=== PATIENT | male | born 1955 | race Caucasian/White ===

== ENCOUNTER 2016-07-08 15:19 | Outpatient (RCR) | payer BC ==
--- OUTSIDE RECORDS SUMMARY | 2016-04-21 15:19 | XMS REPORT | Continuity of Care Document ---
Author Author [facility] Organization [facility] Address Unknown Phone Unavailable Care Team Providers Care Orchid Hand Name Role Phone Leland Hernández PCP [phone] Source Comments Some departments are not documenting in the electronic medical record. If you do not see the information that you expected, contact Release of Information in the Health Information Management department at [phone] for further assistance in locating additional records.[facility] Active Allergies and Adverse Reactions No Known Allergies Current Medications Prescription Sig. Disp. Refills Start End Date Status Date benazepril (LOTENSIN) 20 Take 20 mg by mouth Active mg tablet daily. Olopatadine 0.6 % spry Apply 2 Sprays to each Active nostril as directed twice daily as needed. levothyroxine (SYNTHROID) Take 150 mcg by mouth Active 150 mcg tablet daily. MULTIVITAMINS WITH Take 1 Tab by mouth Active FLUORIDE (MULTI-VITAMIN daily. PO) Lysine 500 mg tab Take 1 Tab by mouth twice Active daily. tamsulosin (FLOMAX) 0.4 Take 1 Cap by mouth daily 90 Cap 3 10/17/19 Active mg capsule after breakfast. 16 baclofen (LIORESAL) 10 mg Take 0.5 Tabs by mouth 270 Tab 3 10/17/19 Active tablet three times daily. 16 acetaminophen (TYLENOL) Take 2 Tabs by mouth 30 Tab 1 10/17/19 Active 325 mg tablet every 4 hours as needed 16 for Pain. oxyCODONE (ROXICODONE) 5 Take 1 Tab by mouth every 10/17/19 Active mg tablet 3 hours as needed for 16 Pain Earliest Fill Date: 10/17/15 levETIRAcetam (KEPPRA) Take 1 Tab by mouth twice 10/17/19 Active 500 mg tablet daily. 16 cetirizine (ZYRTEC) 10 mg Take 1 Tab by mouth 90 Tab 3 10/17/19 Active tablet daily. 16 famotidine (PEPCID) 20 mg Take 1 Tab by mouth twice 180 Tab 3 Active tablet daily. 16 docusate (COLACE) 100 mg Take 1 Cap by mouth twice 180 Cap 3 10/17/19 Active capsule daily. 16 milk of magnesia (CONC) Take 10 mL by mouth 10/17/19 Active 2,400 mg/10 mL oral daily. 16 suspension polyethylene glycol 3350 Take 17 g by mouth twice 238 g 3 10/17/19 Active (GLYCOLAX; MIRALAX) 17 daily. 16 gram/dose powder senna/docusate Take 1 Tab by mouth twice 10/17/19 Active (SENOKOT-S) 8.6/50 mg daily. 16 tablet fludrocortisone Take 1 Tab by mouth 10/17/19 Active (FLORINEF) 0.1 mg tablet daily. Maintain NA > 130 16 polymyxin/bacitracin/erin/ As directed 10/17/19 Active HC (CORTISPORIN) 1 % 16 topical ointment sodium chloride(#) inj Take 8.5 mL by mouth 10/17/19 Active for po 4 mEq/mL every 6 hours. 16 apixaban (ELIQUIS) 5 mg Take 5 mg by mouth twice Active tab tablet daily. SULFAMETHOXAZOLE/TRIMETHO Take 1 Tab by mouth twice Active PRIM (BACTRIM PO) daily. Active Problems Problem Noted Date GBM (glioblastoma multiforme) (HCC) 12/26/2015 Glioblastoma (HCC) 12/26/2015 Intracranial mass 10/03/2015 Most Recent Encounters Date Type Specialty Providers Description 03/25/2016 Orders Only Neurosurgery Brionna Deras RN Glioblastoma ( HCC) (Primary Dx) 02/29/2016 Orders Only Neurosurgery Monty Sorto MD GBM ( glioblastoma multiforme) (HCC) (Primary Dx) 02/29/2016 Telephone Monty Drake MD Appointment 02/26/2016 Orders Only Brionna De Santiago RN Glioblastoma ( HCC) 02/20/2016 Office Visit Monty Drake MD Glioblastoma (HCC) (Primary Dx) 02/20/2016 Office Visit Mansoor Holliday MD 02/11/2016 Telephone Monty Drake MD Appointment Social History Tobacco Use Types Packs/Day Years Used Date Current Every Day Smoker Cigarettes 0.5 Smokeless Tobacco: Never Used Alcohol Use Drinks/Week oz/Week Comments Yes 0 Standard 0.0 drinks or equivalent Last Filed Vital Signs Vital Sign Reading Time Taken Blood Pressure 108/72 02/20/2016 11:57 AM CDT Pulse 92 02/20/2016 11:57 AM CDT Temperature 36.9 C (98.4 F) 02/20/2016 11:57 AM CDT Respiratory Rate - - Height 1.829 m (6') 10/08/2015 7:34 PM CDT Weight 97.8 kg (215 lb 9.8 oz) 10/12/2015 6:00 AM CDT Body Mass Index 29.24 10/12/2015 6:00 AM CDT Oxygen Saturation 97% 10/17/2015 5:20 AM CDT Plan of Care Date Type Specialty Providers Description 04/23/2016 Appointment [place] [address] [place] [address] [phone] (Fax) 04/23/2016 Appointment Neurosurgery Mansoor Negron MD [address] [facility] [address] [place] [address] [phone] (Fax) Health Maintenance Due Date Last Done Comments Hepatitis C Screening 1955 Physical (Comprehensive) 1960 Exam Pertussis Vaccine 1964 Tetanus Vaccine 1970 Colorectal Cancer 2003 Screening Shingles Vaccine 2013 Influenza Vaccine 03/20/2016 Results from Last 3 Months MRI HEAD WO/W CONTRAST (02/15/2016)
[2016-04-21 15:28] LABS: BASOPHILS % (AUTO) 0 % (0-10); EOSINOPHILS # (AUTO) 0.5 10^3/uL (0.0-0.3); EOSINOPHILS % (AUTO) 6 % (0-10); LYMPHOCYTES # (AUTO) 1.5 X 10^3 (1.0-4.0); LYMPHOCYTES % (AUTO) 18 % (12-44); MEAN CORPUSCULAR HEMOGLOBIN 29 PG (25-34); MEAN CORPUSCULAR HGB CONC 33 G/DL (32-36); MEAN CORPUSCULAR VOLUME 86 FL (80-99); MEAN PLATELET VOLUME 9.4 FL (7.4-10.4); MONOCYTES # (AUTO) 1.1 X 10^3 (0.0-1.0); MONOCYTES % (AUTO) 14 % (0-12); NEUTROPHILS # (AUTO) 5.4 X 10^3 (1.8-7.8); NEUTROPHILS % (AUTO) 63 % (42-75); PLATELET COUNT 217 10^3/uL (130-400); RED BLOOD COUNT 4.09 10^6/uL (4.35-5.85); RED CELL DISTRIBUTION WIDTH 15.1 % (10.0-14.5); WHITE BLOOD COUNT 8.5 10^3/uL (4.3-11.0)
[2016-04-21 16:10] LABS: ALANINE AMINOTRANSFERASE 8 U/L (0-55); ALBUMIN 3.5 G/DL (3.2-4.5); ANION GAP 10 MMOL/L (5-14); ASPARTATE AMINO TRANSFERASE 13 U/L (5-34); BILIRUBIN,TOTAL 0.2 MG/DL (0.1-1.0); BLOOD UREA NITROGEN 20 MG/DL (7-18); BUN/CREATININE RATIO 18; CALCIUM 9.2 MG/DL (8.5-10.1); CARBON DIOXIDE 19 MMOL/L (21-32); CHLORIDE 107 MMOL/L (98-107); CREATININE SERUM 1.14 MG/DL (0.60-1.30); GFR ESTIMATED > 60; GLUCOSE 126 MG/DL (70-105); POTASSIUM 3.9 MMOL/L (3.6-5.0); SODIUM 136 MMOL/L (135-145); TOTAL PROTEIN 6.2 G/DL (6.4-8.2)
[2016-05-15 15:13] LABS: BASOPHILS % (AUTO) 0 % (0-10); EOSINOPHILS # (AUTO) 0.3 10^3/uL (0.0-0.3); EOSINOPHILS % (AUTO) 3 % (0-10); LYMPHOCYTES # (AUTO) 1.1 X 10^3 (1.0-4.0); LYMPHOCYTES % (AUTO) 12 % (12-44); MEAN CORPUSCULAR HEMOGLOBIN 28 PG (25-34); MEAN CORPUSCULAR HGB CONC 33 G/DL (32-36); MEAN CORPUSCULAR VOLUME 85 FL (80-99); MEAN PLATELET VOLUME 9.3 FL (7.4-10.4); MONOCYTES # (AUTO) 1.1 X 10^3 (0.0-1.0); MONOCYTES % (AUTO) 12 % (0-12); NEUTROPHILS # (AUTO) 6.8 X 10^3 (1.8-7.8); NEUTROPHILS % (AUTO) 73 % (42-75); PLATELET COUNT 286 10^3/uL (130-400); RED CELL DISTRIBUTION WIDTH 15.7 % (10.0-14.5); WHITE BLOOD COUNT 9.3 10^3/uL (4.3-11.0)
[2016-05-15 15:43] LABS: ALANINE AMINOTRANSFERASE 18 U/L (0-55); ALBUMIN 3.5 G/DL (3.2-4.5); ANION GAP 4 MMOL/L (5-14); ASPARTATE AMINO TRANSFERASE 14 U/L (5-34); BILIRUBIN,TOTAL 0.4 MG/DL (0.1-1.0); BLOOD UREA NITROGEN 16 MG/DL (7-18); BUN/CREATININE RATIO 15; CALCIUM 8.7 MG/DL (8.5-10.1); CARBON DIOXIDE 26 MMOL/L (21-32); CHLORIDE 104 MMOL/L (98-107); CREATININE SERUM 1.05 MG/DL (0.60-1.30); GFR ESTIMATED > 60; GLUCOSE 165 MG/DL (70-105); POTASSIUM 3.8 MMOL/L (3.6-5.0); SODIUM 134 MMOL/L (135-145); TOTAL PROTEIN 6.2 G/DL (6.4-8.2)
[2016-05-22 14:41] LABS: BASOPHILS % (AUTO) 0 % (0-10); EOSINOPHILS # (AUTO) 0.4 10^3/uL (0.0-0.3); EOSINOPHILS % (AUTO) 8 % (0-10); LYMPHOCYTES # (AUTO) 1.3 X 10^3 (1.0-4.0); LYMPHOCYTES % (AUTO) 23 % (12-44); MEAN CORPUSCULAR HEMOGLOBIN 29 PG (25-34); MEAN CORPUSCULAR HGB CONC 33 G/DL (32-36); MEAN CORPUSCULAR VOLUME 87 FL (80-99); MEAN PLATELET VOLUME 9.2 FL (7.4-10.4); MONOCYTES # (AUTO) 0.6 X 10^3 (0.0-1.0); MONOCYTES % (AUTO) 12 % (0-12); NEUTROPHILS # (AUTO) 3.2 X 10^3 (1.8-7.8); NEUTROPHILS % (AUTO) 57 % (42-75); PLATELET COUNT 328 10^3/uL (130-400); RED BLOOD COUNT 4.05 10^6/uL (4.35-5.85); RED CELL DISTRIBUTION WIDTH 15.8 % (10.0-14.5); WHITE BLOOD COUNT 5.6 10^3/uL (4.3-11.0)
[2016-05-22 15:07] LABS: ALANINE AMINOTRANSFERASE 17 U/L (0-55); ALBUMIN 3.6 G/DL (3.2-4.5); ANION GAP 8 MMOL/L (5-14); ASPARTATE AMINO TRANSFERASE 20 U/L (5-34); BILIRUBIN,TOTAL 0.2 MG/DL (0.1-1.0); BLOOD UREA NITROGEN 11 MG/DL (7-18); BUN/CREATININE RATIO 12; CALCIUM 9.1 MG/DL (8.5-10.1); CARBON DIOXIDE 26 MMOL/L (21-32); CHLORIDE 104 MMOL/L (98-107); CREATININE SERUM 0.92 MG/DL (0.60-1.30); GFR ESTIMATED > 60; GLUCOSE 107 MG/DL (70-105); SODIUM 138 MMOL/L (135-145); TOTAL PROTEIN 6.3 G/DL (6.4-8.2)
[2016-06-23 15:18] LABS: BASOPHILS % (AUTO) 0 % (0-10); EOSINOPHILS # (AUTO) 0.2 10^3/uL (0.0-0.3); EOSINOPHILS % (AUTO) 5 % (0-10); LYMPHOCYTES # (AUTO) 1.1 X 10^3 (1.0-4.0); LYMPHOCYTES % (AUTO) 23 % (12-44); MEAN CORPUSCULAR HGB CONC 33 G/DL (32-36); MEAN CORPUSCULAR VOLUME 90 FL (80-99); MEAN PLATELET VOLUME 9.3 FL (7.4-10.4); MONOCYTES # (AUTO) 0.5 X 10^3 (0.0-1.0); MONOCYTES % (AUTO) 10 % (0-12); NEUTROPHILS % (AUTO) 62 % (42-75); PLATELET COUNT 215 10^3/uL (130-400); RED BLOOD COUNT 4.21 10^6/uL (4.35-5.85); RED CELL DISTRIBUTION WIDTH 16.1 % (10.0-14.5); WHITE BLOOD COUNT 4.9 10^3/uL (4.3-11.0)
[2016-06-23 15:26] LABS: MEAN CORPUSCULAR HEMOGLOBIN 29 PG (25-34)
[2016-06-23 15:49] LABS: ALANINE AMINOTRANSFERASE 11 U/L (0-55); ALBUMIN 3.8 G/DL (3.2-4.5); ANION GAP 7 MMOL/L (5-14); ASPARTATE AMINO TRANSFERASE 17 U/L (5-34); BILIRUBIN,TOTAL 0.3 MG/DL (0.1-1.0); BLOOD UREA NITROGEN 13 MG/DL (7-18); BUN/CREATININE RATIO 15; CALCIUM 9.2 MG/DL (8.5-10.1); CARBON DIOXIDE 28 MMOL/L (21-32); CHLORIDE 106 MMOL/L (98-107); CREATININE SERUM 0.87 MG/DL (0.60-1.30); GFR ESTIMATED > 60; GLUCOSE 113 MG/DL (70-105); POTASSIUM 4.1 MMOL/L (3.6-5.0); SODIUM 141 MMOL/L (135-145); TOTAL PROTEIN 6.2 G/DL (6.4-8.2)
[2016-06-30 16:06] LABS: BASOPHILS % (AUTO) 0 % (0-10); EOSINOPHILS # (AUTO) 0.2 10^3/uL (0.0-0.3); EOSINOPHILS % (AUTO) 4 % (0-10); LYMPHOCYTES % (AUTO) 18 % (12-44); MEAN CORPUSCULAR HEMOGLOBIN 30 PG (25-34); MEAN CORPUSCULAR HGB CONC 33 G/DL (32-36); MEAN CORPUSCULAR VOLUME 91 FL (80-99); MEAN PLATELET VOLUME 9.6 FL (7.4-10.4); MONOCYTES # (AUTO) 0.5 X 10^3 (0.0-1.0); MONOCYTES % (AUTO) 8 % (0-12); NEUTROPHILS # (AUTO) 3.7 X 10^3 (1.8-7.8); NEUTROPHILS % (AUTO) 69 % (42-75); PLATELET COUNT 198 10^3/uL (130-400); RED BLOOD COUNT 4.19 10^6/uL (4.35-5.85); RED CELL DISTRIBUTION WIDTH 15.4 % (10.0-14.5); WHITE BLOOD COUNT 5.4 10^3/uL (4.3-11.0)
[2016-06-30 16:38] LABS: ANION GAP 8 MMOL/L (5-14); BLOOD UREA NITROGEN 13 MG/DL (7-18); BUN/CREATININE RATIO 14; CALCIUM 9.2 MG/DL (8.5-10.1); CARBON DIOXIDE 27 MMOL/L (21-32); CHLORIDE 105 MMOL/L (98-107); CREATININE SERUM 0.95 MG/DL (0.60-1.30); GFR ESTIMATED > 60; GLUCOSE 104 MG/DL (70-105); SODIUM 140 MMOL/L (135-145)
[~2016-07-08 15:19] MED LIST: ACET-77 PO; ALFU10TA11 PO; ALPR0.5T PO; ALPR0.5T7 PO; AMPI500C9 PO; APIX5TAB PO; BACL10TA PO; BENA20TA2 PO; BETH25TA PO; BETH50TA PO; BNZ20T PO; CEFD300C3 PO; CEFU250T PO; CIPR500T4 PO; DEXA1TAB PO; DEXA4TAB PO; DIPH25CA79 PO; DOCU-143 PO; FAMO20TA3 PO; FAMO20TA5 PO; FLDR.1T PO; FLU TRIvalent (5 YOA+) 2016-17 (CANCER CTR) 0.5 ML IM ONE; HYDR453. TOP; IBUP-1773 PO; IBUP-2055 PO; INSU100I14 SQ; INSU100I29 SQ; INSU100V16 SC; INSU100V5 SQ; LEVE10006 PO; LEVE500T6 PO; LEVE500T99 PO; LEVO100T7 PO; LEVO150T PO; LEVO25TA45; LEVO50TA6 PO; LEVO750T9 PO; LIDO30JE10 TOP; LIDO5JEL10 TOP; LORA10TA7 PO; LRT10T; LYSI500T3 PO; MULT-35 PO; MULT-608; NCT7P TD; NITR-65 PO; NYST15CR TP; ONDA8TAB13 PO; ONDA8TAB9 PO; OXYC5TAB71 PO; Oxycodone Hcl PO; POLY17PO23 PO; SENN-20 PO; SULF1TAB35 PO; TEMO100C13 PO; TEMO20CA14 PO; TEMO5CAP PO; VITA1TAB
[2016-07-08 16:14] LABS: BASOPHILS % (AUTO) 0 % (0-10); EOSINOPHILS # (AUTO) 0.2 10^3/uL (0.0-0.3); EOSINOPHILS % (AUTO) 3 % (0-10); LYMPHOCYTES % (AUTO) 18 % (12-44); MEAN CORPUSCULAR HEMOGLOBIN 30 PG (25-34); MEAN CORPUSCULAR HGB CONC 34 G/DL (32-36); MEAN CORPUSCULAR VOLUME 91 FL (80-99); MEAN PLATELET VOLUME 9.4 FL (7.4-10.4); MONOCYTES # (AUTO) 0.5 X 10^3 (0.0-1.0); MONOCYTES % (AUTO) 10 % (0-12); NEUTROPHILS # (AUTO) 3.6 X 10^3 (1.8-7.8); NEUTROPHILS % (AUTO) 68 % (42-75); PLATELET COUNT 229 10^3/uL (130-400); RED BLOOD COUNT 4.45 10^6/uL (4.35-5.85); RED CELL DISTRIBUTION WIDTH 14.6 % (10.0-14.5); WHITE BLOOD COUNT 5.2 10^3/uL (4.3-11.0)
[2016-07-08 16:55] LABS: ANION GAP 9 MMOL/L (5-14); BLOOD UREA NITROGEN 13 MG/DL (7-18); BUN/CREATININE RATIO 14; CALCIUM 9.2 MG/DL (8.5-10.1); CARBON DIOXIDE 27 MMOL/L (21-32); CHLORIDE 105 MMOL/L (98-107); GFR ESTIMATED > 60; GLUCOSE 115 MG/DL (70-105); POTASSIUM 3.3 MMOL/L (3.6-5.0); SODIUM 141 MMOL/L (135-145)
[2016-07-15] MEDS ORDERED: TRAZ-28 PO (09:08)
[2016-07-15] MEDS ORDERED: LEVO150T6 PO (09:08)
[2016-07-15] MEDS ORDERED: ONDA8TAB13 PO (09:08)
[2016-07-15] MEDS ORDERED: TEMO100C13 PO (09:08)
[2016-07-15] MEDS ORDERED: ALPR0.5T7 PO (09:08)
[2016-07-15] MEDS ORDERED: NITR100C PO (09:08)
[2016-07-15] MEDS ORDERED: HYDR453. TP (09:19)
[2016-07-15] MEDS ORDERED: LIDO30JE10 TP (09:19)
[2016-07-15] MEDS ORDERED: DICL100G31 TP (09:19)
[2016-07-15] MEDS ORDERED: LORA10TA7 PO (09:22)
== END 2016-07-20 | disposition home or self-care (01) ==
LOC: ONC 15:19
PROVIDERS: ATTEND Internal Medicine Hematology & Oncology
DX: C71.5 Malignant neoplasm of cerebral ventricle (principal); I10 Essential (primary) hypertension; E03.9 Hypothyroidism, unspecified; F17.210 Nicotine dependence, cigarettes, uncomplicated; R82.99 Other abnormal findings in urine; Z79.899 Other long term (current) drug therapy; Z23 Encounter for immunization
CPT/HCPCS: 36415; 80048; 80053; 85025; 90471; 99213

== ENCOUNTER 2016-07-14 22:10 | Inpatient (IN) | payer BC ==
[~2016-07-14] VITALS: Ht 182.9 cm; Wt 81.7 kg
[~2016-07-14 22:10] MED LIST changes: -FLU TRIvalent (5 YOA+) 2016-17 (CANCER CTR) 0.5 ML IM ONE
--- OUTSIDE RECORDS SUMMARY | 2016-07-14 22:14 | XMS REPORT | Continuity of Care Document ---
Author Author [facility] Organization [facility] Address Unknown Phone Unavailable Care Team Providers Care [place] Name Role Phone Ramón Barger PCP [phone] Source Comments Some departments are not documenting in the electronic medical record. If you do not see the information that you expected, contact Release of Information in the Health Information Management department at [phone] for further assistance in locating additional records.[facility] Active Allergies and Adverse Reactions Allergen Noted Date Severity Reactions Comments Vancomycin 06/18/2016 Low COUGH, SWEATING Current Medications Prescription Sig. Disp. Refills Start [...] daily. SULFAMETHOXAZOLE/TRIMETHO Take 1 Tab by mouth at Active PRIM (BACTRIM PO) bedtime daily. nitrofurantoin Take 100 mg by mouth Active monohyd/m-cryst every 12 hours. Take with (MACROBID) 100 mg capsule food. Active Problems Problem Noted Date GBM (glioblastoma multiforme) (HCC) 12/26/2015 Glioblastoma (HCC) 12/26/2015 Intracranial mass 10/03/2015 Most Recent Encounters Date Type Specialty Providers Description 07/07/2016 Telephone Neurosurgery Monty Sorto MD Cough 06/26/2016 Telephone Neurosurgery Brionna Deras RN Medication Question 06/25/2016 Orders Only Neurosurgery Brionna Deras RN GBM ( glioblastoma multiforme) (HCC) 06/24/2016 Telephone Neurosurgery Brionna Deras RN Other 06/18/2016 Office Visit Neurosurgery Monty Sorto MD Glioblastoma (HCC) (Primary Dx) 05/30/2016 Scan Only Monty Sorto MD 05/16/2016 Telephone Neurosurgery Monty Sorto MD Medication Question 04/25/2016 Orders Only Neurosurgery Monty Sorto MD Glioblastoma ( HCC) (Primary Dx) 04/25/2016 Orders Only Neurosurgery Brionna Deras RN Glioblastoma ( HCC) 04/23/2016 Office Visit Neurosurgery Mansoor Negron MD GBM ( glioblastoma multiforme) (HCC) (Primary Dx) 04/23/2016 Office Visit Neurosurgery Ariadne Hill APRN GBM ( glioblastoma multiforme) (HCC) (Primary Dx) 04/23/2016 Ancillary Radiology Outpatient, Radiologist Diagnosis unknown Orders (Primary Dx) 04/22/2016 Hospital Radiology Encounter Social History Tobacco Use Types Packs/Day Years Used Date Current Every Day Smoker Cigarettes 0.5 Smokeless Tobacco: Never Used Alcohol Use Drinks/Week oz/Week Comments Yes 0 Standard 0.0 drinks or equivalent Last Filed Vital Signs Vital Sign Reading Time Taken Blood Pressure 107/73 06/18/2016 2:35 PM CLOTH TESTER Pulse 84 06/18/2016 2:35 PM CLOTH TESTER Temperature 36.4 C (97.5 F) 04/23/2016 1:00 PM CDT Respiratory Rate 16 06/18/2016 2:35 PM CLOTH TESTER Height 1.829 m (6' 0.01") 06/18/2016 2:35 PM CLOTH TESTER Weight 89.812 kg (198 lb) 04/23/2016 1:50 PM CDT Body Mass Index 26.85 04/23/2016 1:50 PM CDT Oxygen Saturation 98% 04/23/2016 1:00 PM CDT Plan of Care Date Type Specialty Providers Description 08/20/2016 [place] [address] [place] [address] [phone] (Fax) Health Maintenance Due Date Last Done Comments Hepatitis C Screening 1955 Physical (Comprehensive) 1960 Exam Pertussis Vaccine 1964 Tetanus Vaccine 1970 Colorectal Cancer 2003 Screening Shingles Vaccine 2013 Influenza Vaccine 03/20/2016 Results from Last 3 Months MRI HEAD WO/W CONTRAST (06/14/2016)Only the most recent of 2 results within the time period is included.MRI HEAD EXTERNAL IMAGING (04/22/2016) Narrative This order has been auto finalized and does not contain a result.
[2016-07-14 22:30] LABS: BASOPHILS % (AUTO) 0 % (0-10); EOSINOPHILS # (AUTO) 0.1 10^3/uL (0.0-0.3); EOSINOPHILS % (AUTO) 1 % (0-10); LYMPHOCYTES # (AUTO) 1.3 X 10^3 (1.0-4.0); LYMPHOCYTES % (AUTO) 18 % (12-44); MEAN CORPUSCULAR HEMOGLOBIN 31 PG (25-34); MEAN CORPUSCULAR HGB CONC 34 G/DL (32-36); MEAN CORPUSCULAR VOLUME 91 FL (80-99); MEAN PLATELET VOLUME 10.3 FL (7.4-10.4); MONOCYTES # (AUTO) 0.5 X 10^3 (0.0-1.0); MONOCYTES % (AUTO) 7 % (0-12); NEUTROPHILS # (AUTO) 5.4 X 10^3 (1.8-7.8); NEUTROPHILS % (AUTO) 73 % (42-75); PLATELET COUNT 207 10^3/uL (130-400); RED BLOOD COUNT 4.33 10^6/uL (4.35-5.85); RED CELL DISTRIBUTION WIDTH 13.8 % (10.0-14.5); WHITE BLOOD COUNT 7.3 10^3/uL (4.3-11.0)
--- NOTE | 2016-07-14 22:40 | ED General ---
General Chief Complaint: General Problems/Pain Stated Complaint: WEAKNESS Nursing Triage Note: BROUGHT IN BY [facility] FOR C/O GENERALIZED WEAKNESS. Nursing Sepsis Screen: No Definite Risk Source of Information: Patient Exam Limitations: No Limitations History of Present Illness Time Seen by Provider: 22:20 Initial Comments Here with increasing weakness over the past couple of days. Does have history of glioblastoma to the brain with at least 2 lesions. Currently on chemotherapy. Has had some upper respiratory increased secretions and coughing. Also had some vomiting which may be related to mucus and/or stomach nausea. No reported fevers. Has had less by mouth intake of fluids and is concerned about dehydration. Has history of frequent UTIs but that has been managed better recently. Patient does have vision deficit and hearing deficit related to the lesions. Timing/Duration: 2-3 Days, Getting Worse Severity: Moderate Associated Systoms: No Chest Pain, CoughNo Fever/Chills, Loss of Appetite Nausea/Vomiting Weakness Allergies and Home Medications Allergies Coded Allergies: vancomycin (Verified Allergy, Unknown, 05/25/16) Home Medications Alfuzosin HCl 10 Mg Tab.er.24h 10 MG PO 1800 (Reported) Alprazolam 0.5 Mg Tablet 0.5 MG PO Q8H PRN PRN ANXIETY (Reported) Ampicillin Trihydrate 500 Mg Capsule #40 500 MG PO Q6H Prescribed by: ALONSO BERTRAND on 05/25/16 1821 Apixaban 5 Mg Tablet #60 (Reported) Baclofen 10 Mg Tablet 5 MG PO BID (Reported) TAKES 1/2 (10MG) TABLET Benazepril HCl 20 Mg Tablet 10 MG PO DAILY (Reported) TAKES 1/2 (20MG) TABLET Bethanechol Chloride 50 Mg Tablet 50 MG PO TID (Reported) Cefdinir 300 Mg Capsule #20 300 MG PO BID Prescribed by: CRISPIN URIAS on 03/18/16 0306 Ciprofloxacin HCl 500 Mg Tablet #20 500 MG PO BID Prescribed by: ALONSO BERTRAND on 05/25/16 182 Diphenhydramine HCl 25 Mg Capsule 25-50 MG PO HS PRN PRN SLEEP (Reported) Docusate Sodium 100 Mg Capsule 100-200 MG PO TID PRN PRN CONSTIPATION (Reported ) TAKES 1 TO 2 (100MG) CAPSULES Famotidine 20 Mg Tablet 20 MG PO DAILY (Reported) Fludrocortisone Acetate 0.1 Mg Tab 0.1 MG PO DAILY (Reported) Ibuprofen 200 Mg Tablet 400 MG PO Q6H PRN PRN PAIN (Reported) TAKES 2 (200MG) TABLETS Levetiracetam 500 Mg Tablet 500 MG PO BID (Reported) Levothyroxine Sodium 50 Mcg Tablet 50 MCG PO DAILY (Reported) TAKES ALONG WITH 100MCG TABLET FOR A TOTAL DAILY DOSE OF 150MCG Levothyroxine Sodium 100 Mcg Tablet 100 MCG PO DAILY (Reported) TAKES ALONG WITH 50MCG TABLET FOR A TOTAL DAILY DOSE OF 150MCG Lysine 500 Mg Tablet 2 TAB PO 1200 (Reported) Multivitamin 1 Each Tablet 1 TAB PO 1200 (Reported) Nitrofurantoin Monohyd/M-Cryst 100 Mg Capsule #20 1 TAB PO BID Prescribed by: WALLY CASAS on 04/28/16 1516 Nitrofurantoin Monohyd/M-Cryst 100 Mg Capsule #20 1 TAB PO BID Prescribed by: MARY TRUJILLO on 05/12/16 0203 Ondansetron 8 Mg Tab.rapdis 8 MG PO DAILY PRN PRN NAUSEA (Reported) Oxycodone HCl 5 Mg Tablet 5 MG PO Q4H PRN PRN PAIN (Reported) Constitutional: see HPINo chills, No fever EENTM: see HPI Respiratory: see HPI cough short of breath Cardiovascular: no symptoms reported Gastrointestinal: see HPINo abdominal pain, nausea vomiting Genitourinary: see HPI incontinence Musculoskeletal: muscle weakness other (left arm in sling from injury several months ago.) Skin: no symptoms reported Psychiatric/Neurological: See HPI Hematologic/Lymphatic: No Symptoms Reported All Other Systems Reviewed Negative Unless Noted: Yes Past Lfavsap-Wdecwu-Szbwxe Hx Patient Social History Alcohol Use: Denies Use Recreational Drug Use: No Smoking Status: Current Everyday Smoker Type Used: Cigarettes Recent Foreign Travel: No Contact w/Someone Who Travel: No Recent Infectious Disease Expo: No Recent Hopitalizations: Yes Physical Abuse Screen: No Sexual Abuse: No Immunizations Up To Date Tetanus Booster (TDap): Unknown PED Vaccines UTD: No Seasonal Allergies Seasonal Allergies: Yes Surgeries HX Surgeries: Yes (RESECTION OF BRAIN TUMOR/GLIOBLASTOMA) Surgeries: Appendectomy, Neurological Respiratory Hx Respiratory Disorders: No Cardiovascular Hx Cardiac Disorders: Yes Cardiac Disorders: Hypertension Neurological Hx Neurological Disorders: Yes (GLIOBLASTOMA; LEFT SIDE WEAKNESS POST RESECTION OF BRAIN TUMOR) Neurological Disorders: Brain Tumor, Headaches /Migraines, Paralysis Reproductive System Hx Reproductive Disorders: No Sexually Transmitted Disease: No HIV/AIDS: No Genitourinary Hx Genitourinary Disorders: Yes Genitourinary Disorders: UTI-Chronic Gastrointestinal Hx Gastrointestinal Disorders: Yes (PANCREATITIS 2000) Gastrointestinal Disorders: Gastroesophageal Reflux, Pancreatitis Musculoskeletal Hx Musculoskeletal Disorders: Yes (LEFT SIDED WEAKNESS) Musculoskeletal Disorders: Back Injury, Chronic Back Pain Endocrine Hx Endocrine Disorders: Yes Endocrine Disorders: Hypothyroidsim HEENT HX ENT Disorders: Yes (SINUSITIS) Loss of Vision: Denies Hearing Impairment: Denies Cancer Hx Cancer: Yes (GLIOBLASTOMA) Cancer: Brain Psychosocial Hx Psychiatric Problems: No Integumentary HX Skin/Integumentary Disorder: No Blood Transfusions Hx Blood Disorders: No Adverse Reaction to a Blood Tr: No Reviewed Nursing Assessment Reviewed/Agree w Nursing PMH: Yes Family Medical History Significant Family History: No Pertinent Family Hx Family Medial History: Alcoholism 19 FATHER Cardiovascular disease 19 FATHER FH: stomach ulcer G8 BROTHER Parkinson's disease 19 MOTHER Physical Exam-Suspected Sepsis Physical Exam Vital Signs Vital Sign - Last 12Hours 07/14/16 07/14/16 22:27 22:58 Temp 97.4 Pulse 81 Resp 16 B/P 173/104 Pulse Ox 96 O2 Delivery Room Air O2 Flow Rate 2 Capillary Refill : Less Than 3 Seconds Blood Pressure Mean: 127 General Appearance: No Apparent Distress Chronically ill HEENT: PERRL/EOMI Pharynx Normal Neck: Non Tender Supple Respiratory: No Respiratory DistressNo Respiratory Distress, Other (mild crackles throughout) Cardiovascular: Regular Rate, Rhythm No Murmur Gastrointestinal: Non Tender Soft Back: No CVA Tenderness Decreased Range of Motion Extremity: Non Tender No Calf Tenderness Neurologic/Psychiatric: Alert Sensory Deficit (whininess and hearing loss) Skin: normal color warm/dryNo rash Progress/Results/Core Measures Suspected Sepsis Recent Fever Within 48 Hours: No Infection Criteria Present: None New/Unexplained Altered Menta: No Sepsis Screen: No Definite Risk Sepsis Diagnosis: SIRS Temperature:97.4 Pulse: 81 Respiratory Rate: 16 Laboratory Tests 07/14/16 22:15: White Blood Count 7.3 Blood Pressure 173 /104 Mean: 127 Laboratory Tests 07/14/16 22:15: Creatinine 0.99, Platelet Count 207, Total Bilirubin 0.3 Results/Orders Lab Results Laboratory Tests Test 07/14/16 22:15 07/14/16 23:00 Range/Units Alanine Aminotransferase (ALT/SGPT) 28 0-55 U/L Albumin 3.7 3.2-4.5 G/DL Alkaline Phosphatase 52 40-136 U/L Anion Gap 11 5-14 MMOL/L Aspartate Amino Transf (AST/SGOT) 22 5-34 U/L BUN/Creatinine Ratio 16 Basophils # (Auto) 0.0 0.0-0.1 10^3/uL Basophils (%) (Auto) 0 0-10 % Blood Urea Nitrogen 16 7-18 MG/DL C-Reactive Protein High Sensitivity 0.70 H 0.00-0.50 MG/DL Calcium Level 9.0 8.5-10.1 MG/DL Carbon Dioxide Level 27 21-32 MMOL/L Chloride Level 105 98-107 MMOL/L Creatinine 0.99 0.60-1.30 MG/DL Eosinophils # (Auto) 0.1 0.0-0.3 10^3/uL Eosinophils (%) (Auto) 1 0-10 % Estimat Glomerular Filtration Rate > 60 Glucose Level 113 H 70-105 MG/DL Hematocrit 39 L 40-54 % Hemoglobin 13.2 L 13.3-17.7 G/DL Lactic Acid Level 1.1 0.5-2.0 MMOL/L Lymphocytes # (Auto) 1.3 1.0-4.0 X 10^3 Lymphocytes (%) (Auto) 18 12-44 % Mean Corpuscular Hemoglobin 31 25-34 PG Mean Corpuscular Hemoglobin Concent 34 32-36 G/DL Mean Corpuscular Volume 91 80-99 FL Mean Platelet Volume 10.3 7.4-10.4 FL Monocytes # (Auto) 0.5 0.0-1.0 X 10^3 Monocytes (%) (Auto) 7 0-12 % Neutrophils # (Auto) 5.4 1.8-7.8 X 10^3 Neutrophils (%) (Auto) 73 42-75 % Platelet Count 207 130-400 10^3/uL Potassium Level 3.1 L 3.6-5.0 MMOL/L Red Blood Count 4.33 L 4.35-5.85 10^6/uL Red Cell Distribution Width 13.8 10.0-14.5 % Sodium Level 143 135-145 MMOL/L Total Bilirubin 0.3 0.1-1.0 MG/DL Total Protein 6.1 L 6.4-8.2 G/DL White Blood Count 7.3 4.3-11.0 10^3/uL Urine Amorphous Sediment FEW ARVIND URATES H /LPF Urine Bacteria FEW H /HPF Urine Bilirubin NEGATIVE NEGATIVE Urine Casts PRESENT /LPF Urine Clarity VERY CLOUDY H Urine Color YELLOW Urine Crystals PRESENT H /LPF Urine Culture Indicated YES Urine Glucose (UA) NEGATIVE NEGATIVE Urine Hyaline Casts 0-2 H /LPF Urine Ketones 3+ H NEGATIVE Urine Leukocyte Esterase 2+ H NEGATIVE Urine Mucus SMALL H /LPF Urine Nitrite NEGATIVE NEGATIVE Urine Protein 2+ H NEGATIVE Urine RBC NONE /HPF Urine RBC (Auto) NEGATIVE NEGATIVE Urine Specific Drummond 1.025 H 1.016-1.022 Urine Squamous Epithelial Cells RARE /HPF Urine Urobilinogen NORMAL NORMAL MG/DL Urine WBC 2-5 /HPF Urine pH 6 5-9 My Orders Orders-AMBER MICHAELS MD Cbc With Automated Diff (07/14/16 22:18) Comprehensive Metabolic Panel (07/14/16 22:18) Hs C Reactive Protein (07/14/16 22:18) Blood Culture (07/14/16 22:18) Chest 1 View, Ap/Pa Only (07/14/16 22:18) Lactic Acid Analyzer (07/14/16 22:18) Ua Culture If Indicated (07/14/16 22:18) Straight Cath (Urinary) (07/14/16 22:46) Lidocaine 2% (Urojet) (Xylocaine Urojet) (07/14/16 23:00) Urine Culture (07/14/16 23:00) Ns Iv 500 Ml (Sodium Chloride 0.9%) (07/14/16 23:54) Dexamethasone Pf Injection (Decadron Pf (07/14/16 23:54) Medications Given in ED Current Medications Medications Dose Ordered Sig/Rafita Route Start Time Stop Time Status Last Admin Dose Admin Lidocaine HCl 10 ml 10 ml ONCE ONCE TOP 07/14/16 23:00 07/14/16 23:01 DC 07/14/16 22:57 10 ML Sodium Chloride 500 ml @ 0 mls/hr Q0M ONCE IV 07/14/16 23:54 07/14/16 23:56 DC 07/15/16 00:00 0 MLS/HR Vital Signs/I&O Vital Sign - Last 12Hours 07/14/16 07/14/16 07/15/16 07/15/16 22:27 22:58 00:02 00:18 Temp 97.4 97.7 98.0 Pulse 81 73 76 77 Resp B/P 173/104 149/99 162/94 Pulse Ox 96 98 97 98 O2 Delivery Room Air Nasal Cannula Room Air Room Air O2 Flow Rate 2 07/15/16 07/15/16 07/15/16 00:33 02:40 02:40 Pulse Ox 97 97 O2 Delivery Room Air Room Air Capillary Refill : Less Than 3 Seconds Blood Pressure Mean: 127 Progress Note : Progress Note Seen and evaluated. IV by EMS. Zofran 4 mg IV by EMS. Normal saline 1 L bolus initiated by EMS and continues. Labs, blood cultures and lactic acid ordered. Monitor patient. Repeat normal saline 500 mL bolus as patient has moderate ketones in urine. Patient remains nauseated. Decadron 10 mg IV. 2355 : Discussed case with Dr. LAIRD. Since patient for admission, observation status. Patient and family agree with plan. Departure Communication Time/Spoke to Admitting Phy: 23:55 Impression Impression: Primary Impression: Nausea and vomiting Qualified Code: R11.14 - Bilious vomiting Additional Impressions: Dehydration Glioblastoma Disposition: ADMITTED INPATIENT Condition: Stable Decision to Admit Reason: Admit from ER (General) Decision to Admit/Date: Jul 14, 2016 Time/Decision to Admit Time: 23:55 Departure-Patient Inst. Referrals: HERNANDEZ LAIRD MD (PCP/Family) Primary Care Physician AMBER MICHAELS MD Jul 14, 2016 22:39
[2016-07-14 22:47] LABS: ALANINE AMINOTRANSFERASE 28 U/L (0-55); ALBUMIN 3.7 G/DL (3.2-4.5); ANION GAP 11 MMOL/L (5-14); ASPARTATE AMINO TRANSFERASE 22 U/L (5-34); BILIRUBIN,TOTAL 0.3 MG/DL (0.1-1.0); BLOOD UREA NITROGEN 16 MG/DL (7-18); BUN/CREATININE RATIO 16; CARBON DIOXIDE 27 MMOL/L (21-32); CHLORIDE 105 MMOL/L (98-107); CREATININE SERUM 0.99 MG/DL (0.60-1.30); GFR ESTIMATED > 60; GLUCOSE 113 MG/DL (70-105); POTASSIUM 3.1 MMOL/L (3.6-5.0); SODIUM 143 MMOL/L (135-145); TOTAL PROTEIN 6.1 G/DL (6.4-8.2)
[2016-07-14] MEDS ORDERED: LIDOCAINE UROJET 2% GEL 10 ML PKG TOP ONE (23:00)
[2016-07-14 23:04] LABS: BILIRUBIN,URINE NEGATIVE (NEGATIVE); KETONES,URINE 3+ (NEGATIVE); LEUKOCYTE ESTERASE ,URINE 2+ (NEGATIVE); NITRITE,URINE NEGATIVE (NEGATIVE); PH,URINE 6 (5-9); PROTEIN,URINE 2+ (NEGATIVE); UROBILINOGEN,URINE NORMAL (NORMAL)
[2016-07-14 23:09] LABS: HYALINE CASTS, URINE 0-2 /LPF; SQUAMOUS EPITHELIAL CELL,UR RARE /HPF
[2016-07-14] MEDS ORDERED: NS IV 500 ML 500 ML IV ONE (23:54)
[2016-07-14] MEDS ORDERED: DEXAMETHASONE PF 10 MG/ML (DECADRON) VIAL IV STA (23:54)
[2016-07-15] VITALS (8 sets, daily range): BP systolic 155–172; BP diastolic 85–97
[2016-07-15] MEDS ORDERED: NS IV 1000 ML 1,000 ML ONE (00:16)
[2016-07-15] MEDS ORDERED: CATHETER FLUSH 10 ML SYR IV PRN (01:15)
[2016-07-15] MEDS: NS IV 1000 ML 1,000 ML IV SCH ×3 (01:15→19:45)
[2016-07-15] MEDS ORDERED: RT-ALBUTEROL/IPRATROPIUM 3 ML (DUONEB) VIAL INH PRN (03:00)
[2016-07-15] MEDS: CATHETER FLUSH 10 ML SYR IV SCH ×3 (03:51→22:00)
[2016-07-15] MEDS ORDERED: LIDOCAINE UROJET 2% GEL 10 ML PKG ONE (04:11)
[2016-07-15 06:45] LABS: BASOPHILS % (AUTO) 0 % (0-10); EOSINOPHILS % (AUTO) 0 % (0-10); LYMPHOCYTES # (AUTO) 0.5 X 10^3 (1.0-4.0); LYMPHOCYTES % (AUTO) 9 % (12-44); MEAN CORPUSCULAR HEMOGLOBIN 31 PG (25-34); MEAN CORPUSCULAR HGB CONC 34 G/DL (32-36); MEAN CORPUSCULAR VOLUME 90 FL (80-99); MEAN PLATELET VOLUME 10.5 FL (7.4-10.4); MONOCYTES % (AUTO) 0 % (0-12); NEUTROPHILS # (AUTO) 4.6 X 10^3 (1.8-7.8); NEUTROPHILS % (AUTO) 91 % (42-75); PLATELET COUNT 224 10^3/uL (130-400); RED BLOOD COUNT 4.33 10^6/uL (4.35-5.85); RED CELL DISTRIBUTION WIDTH 13.8 % (10.0-14.5)
[2016-07-15 07:20] LABS: ALANINE AMINOTRANSFERASE 28 U/L (0-55); ALBUMIN 3.9 G/DL (3.2-4.5); ANION GAP 11 MMOL/L (5-14); ASPARTATE AMINO TRANSFERASE 23 U/L (5-34); BAND NEUTROPHILS 0 %; BASOPHILS % (MANUAL) 0 %; BILIRUBIN,TOTAL 0.4 MG/DL (0.1-1.0); BLOOD UREA NITROGEN 15 MG/DL (7-18); BUN/CREATININE RATIO 16; CALCIUM 8.9 MG/DL (8.5-10.1); CARBON DIOXIDE 25 MMOL/L (21-32); CHLORIDE 105 MMOL/L (98-107); CREATININE SERUM 0.95 MG/DL (0.60-1.30); EOSINOPHILS % (MANUAL) 0 %; GFR ESTIMATED > 60; GLUCOSE 129 MG/DL (70-105); LYMPHOCYTES % (MANUAL) 5 %; NEUTROPHILS % (MANUAL) 93 %; POTASSIUM 3.2 MMOL/L (3.6-5.0); SODIUM 141 MMOL/L (135-145); TOTAL PROTEIN 6.3 G/DL (6.4-8.2)
--- NOTE | 2016-07-15 08:11 | Diagnostic Imaging Report ---
Portable upright radiograph of the chest. INDICATION: Generalized weakness. FINDINGS: There is mild prominence of interstitial markings similar to 03/18/2016. There is no focal airspace consolidation. The heart size is normal. No effusion or pneumothorax. Mediastinum and severo appear unremarkable. IMPRESSION: No acute process. Dictated by: Dictated on workstation # [id number]
--- NOTE | 2016-07-15 08:54 | History & Physicial ---
History of Present Illness History of Present Illness Reason for visit/HPI patient brought to the emergency room by his . Patient been having nausea and vomiting. Patient has history of glioblastoma. Unable to get a history from patient. Patient states who's my daddy. 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 Patient receiving chemotherapy. Patient confused. Patient has 2 lesion in the brain Date of Admission Jul 14, 2016 at 23:55 I consulted on this patient on 07/15/16 08:49 Attending Physician Malina Barger MD Admitting Physician Malina Barger MD Consult Allergies and Home Medications Allergies Coded Allergies: vancomycin (Verified Allergy, Unknown, 05/25/16) Home Medications Alfuzosin HCl 10 Mg Tab.er.24h 10 MG PO 1800 (Reported) Alprazolam 0.5 Mg Tablet 0.5 MG PO Q8H PRN PRN ANXIETY (Reported) Ampicillin Trihydrate 500 Mg Capsule #40 500 MG PO Q6H Prescribed by: ALONSO BERTRAND on 05/25/16 1821 Apixaban 5 Mg Tablet #60 (Reported) Baclofen 10 Mg Tablet 5 MG PO BID (Reported) TAKES 1/2 (10MG) TABLET Benazepril HCl 20 Mg Tablet 10 MG PO DAILY (Reported) TAKES 1/2 (20MG) TABLET Bethanechol Chloride 50 Mg Tablet 50 MG PO TID (Reported) Cefdinir 300 Mg Capsule #20 300 MG PO BID Prescribed by: CRISPIN URIAS on 03/18/16 0306 Ciprofloxacin HCl 500 Mg Tablet #20 500 MG PO BID Prescribed by: ALONSO BERTRAND on 05/25/16 1821 Diphenhydramine HCl 25 Mg Capsule 25-50 MG PO HS PRN PRN SLEEP (Reported) Docusate Sodium 100 Mg Capsule 100-200 MG PO TID PRN PRN CONSTIPATION (Reported ) TAKES 1 TO 2 (100MG) CAPSULES Famotidine 20 Mg Tablet 20 MG PO DAILY (Reported) Fludrocortisone Acetate 0.1 Mg Tab 0.1 MG PO DAILY (Reported) Ibuprofen 200 Mg Tablet 400 MG PO Q6H PRN PRN PAIN (Reported) TAKES 2 (200MG) TABLETS Levetiracetam 500 Mg Tablet 500 MG PO BID (Reported) Levothyroxine Sodium 50 Mcg Tablet 50 MCG PO DAILY (Reported) TAKES ALONG WITH 100MCG TABLET FOR A TOTAL DAILY DOSE OF 150MCG Levothyroxine Sodium 100 Mcg Tablet 100 MCG PO DAILY (Reported) TAKES ALONG WITH 50MCG TABLET FOR A TOTAL DAILY DOSE OF 150MCG Lysine 500 Mg Tablet 2 TAB PO 1200 (Reported) Multivitamin 1 Each Tablet 1 TAB PO 1200 (Reported) Nitrofurantoin Monohyd/M-Cryst 100 Mg Capsule #20 1 TAB PO BID Prescribed by: WALLY CASAS on 04/28/16 1516 Nitrofurantoin Monohyd/M-Cryst 100 Mg Capsule #20 1 TAB PO BID Prescribed by: MARY TRUJILLO on 05/12/16 0203 Ondansetron 8 Mg Tab.rapdis 8 MG PO DAILY PRN PRN NAUSEA (Reported) Oxycodone HCl 5 Mg Tablet 5 MG PO Q4H PRN PRN PAIN (Reported) Past Gcvrmav-Hpzjjh-Rorvit Hx Patient Social History Marrital Status: Alcohol Use: Denies Use Recreational Drug Use: No Smoking Status: Current Everyday Smoker Type Used: Cigarettes Physical Abuse Screen: No Sexual Abuse: No Recent Foreign Travel: No Contact w/other who traveled: No Recent Hopitalizations: Yes Recent Infectious Disease Expo: No Immunizations Up To Date Tetanus Booster (TDap): Unknown Seasonal Allergies Seasonal Allergies: Yes Surgeries HX Surgeries: Yes (RESECTION OF BRAIN TUMOR/GLIOBLASTOMA, RIGHT ROTATOR CUFF) Surgeries: Appendectomy, Neurological Respiratory Hx Respiratory Disorders: No Cardiovascular Hx Cardiovascular Disorders: Yes Cardiac Disorders: Hypertension Neurological Hx Neurological Disorders: Yes (GLIOBLASTOMA; LEFT SIDE WEAKNESS POST RESECTION OF BRAIN TUMOR) Neurological Disorders: Brain Tumor, Headaches /Migraines, Paralysis Reproductive System Hx Reproductive Disorders: No Sexually Transmitted Disease: No HIV/AIDS: No Genitourinary Hx Genitourinary Disorders: Yes Genitourinary Disorders: UTI-Chronic Gastrointestinal Hx Gastrointestinal Disorders: Yes (PANCREATITIS 2000) Gastrointestinal Disorders: Gastroesophageal Reflux, Pancreatitis Musculoskeletal Hx Musculoskeletal Disorders: Yes (LEFT SIDED WEAKNESS) Musculoskeletal Disorders: Back Injury, Chronic Back Pain Endocrine Hx Endocrine Disorders: Yes Endocrine Disorders: Hypothyroidsim HEENT HX ENT Disorders: Yes (SINUSITIS) Loss of Vision: Denies Hearing Impairment: Denies Cancer Hx Cancer: Yes (GLIOBLASTOMA) Cancer: Brain Psychosocial Hx Psychiatric Problems: Yes Behavioral Health Disorders: Depression Integumentary HX Skin/Integumentary Disorder: No Blood Transfusions Hx Blood Disorders: No Adverse Reaction to a Blood Tr: No Reviewed Nursing Assessment Reviewed/Agree w Nursing PMH: Yes Family Medical History Significant Family History: No Pertinent Family Hx Family Hx: Alcoholism 19 FATHER Cardiovascular disease 19 FATHER FH: stomach ulcer G8 BROTHER Parkinson's disease 19 MOTHER Constitutional: other (patient unable to give history. Patient confused. Patient has brain tumors) Physical Exam Vital Signs Vital Sign - Last 12Hours 07/14/16 07/14/16 22:27 22:58 Temp 97.4 Pulse 81 Resp 16 B/P 173/104 Pulse Ox 96 O2 Delivery Room Air O2 Flow Rate 2 Capillary Refill : Less Than 3 Seconds General Appearance: No Apparent Distress HEENT: Normal ENT Inspection Neck: Normal Inspection Respiratory: Chest Non Tender Lungs Clear Normal Breath Sounds No Accessory Muscle Use No Respiratory Distress Cardiovascular: Regular Rate, Rhythm No Murmur Assessment/Plan Assessment and Plan nausea and vomiting. Brain tumor glioblastoma. Confusion. Blind Clinical Quality Measures DVT/VTE Risk/Contraindication: Risk Factor Score Per Nursin RFS Level Per Nursing on Admit: 4+=Very High ADDISON ZULETA DO Jul 15, 2016 08:54
[2016-07-15] MEDS ORDERED: ALPR0.5T7 PO (09:08)
[2016-07-15] MEDS ORDERED: TEMO100C13 PO (09:08)
[2016-07-15] MEDS ORDERED: ONDA8TAB13 PO (09:08)
[2016-07-15] MEDS ORDERED: TRAZ-28 PO (09:08)
[2016-07-15] MEDS ORDERED: LEVO150T6 PO (09:08)
[2016-07-15] MEDS ORDERED: NITR100C PO (09:08)
[2016-07-15] MEDS ORDERED: HYDR453. TP (09:19)
[2016-07-15] MEDS ORDERED: LIDO30JE10 TP (09:19)
[2016-07-15] MEDS ORDERED: DICL100G31 TP (09:19)
[2016-07-15] MEDS ORDERED: LORA10TA7 PO (09:22)
[2016-07-15] MEDS: ONDANSETRON 4 MG/2 ML (SDV) Z0FRAN IV PRN ×2 (14:14→19:00)
[2016-07-16] VITALS (7 sets, daily range): BP systolic 157–181; BP diastolic 80–106
[2016-07-16] MEDS: ONDANSETRON 4 MG/2 ML (SDV) Z0FRAN IV PRN ×3 (04:06→20:26)
[2016-07-16] MEDS: CATHETER FLUSH 10 ML SYR IV SCH ×3 (06:00→19:57)
[2016-07-16 07:03] LABS: BASOPHILS % (AUTO) 0 % (0-10); EOSINOPHILS % (AUTO) 0 % (0-10); LYMPHOCYTES # (AUTO) 1.3 X 10^3 (1.0-4.0); LYMPHOCYTES % (AUTO) 16 % (12-44); MEAN CORPUSCULAR HEMOGLOBIN 31 PG (25-34); MEAN CORPUSCULAR HGB CONC 34 G/DL (32-36); MEAN CORPUSCULAR VOLUME 90 FL (80-99); MEAN PLATELET VOLUME 10.7 FL (7.4-10.4); MONOCYTES # (AUTO) 0.8 X 10^3 (0.0-1.0); MONOCYTES % (AUTO) 9 % (0-12); NEUTROPHILS % (AUTO) 74 % (42-75); PLATELET COUNT 212 10^3/uL (130-400); RED CELL DISTRIBUTION WIDTH 13.6 % (10.0-14.5); WHITE BLOOD COUNT 8.1 10^3/uL (4.3-11.0)
[2016-07-16 07:18] LABS: ALANINE AMINOTRANSFERASE 26 U/L (0-55); ALBUMIN 3.4 G/DL (3.2-4.5); ANION GAP 10 MMOL/L (5-14); ASPARTATE AMINO TRANSFERASE 24 U/L (5-34); BILIRUBIN,TOTAL 0.5 MG/DL (0.1-1.0); BLOOD UREA NITROGEN 11 MG/DL (7-18); BUN/CREATININE RATIO 14; CALCIUM 8.3 MG/DL (8.5-10.1); CARBON DIOXIDE 20 MMOL/L (21-32); CHLORIDE 108 MMOL/L (98-107); CREATININE SERUM 0.81 MG/DL (0.60-1.30); GFR ESTIMATED > 60; GLUCOSE 111 MG/DL (70-105); POTASSIUM 2.9 MMOL/L (3.6-5.0); SODIUM 138 MMOL/L (135-145); TOTAL PROTEIN 5.4 G/DL (6.4-8.2)
[2016-07-16] MEDS: NS IV 1000 ML 1,000 ML IV SCH ×2 (09:08→22:42)
[2016-07-16] MEDS ORDERED: DICLOFENAC 1% GEL 100 GM (VOLTAREN) TUBE TP PRN (09:15)
[2016-07-16] MEDS ORDERED: HYDROCORTISONE 1% CREAM 30 GM TUBE TP PRN (09:15)
[2016-07-16] MEDS: POTASSIUM CL 10MEQ/50ML IVPB 50 ML IV SCH ×4 (10:29→14:02)
[2016-07-16] MEDS: BETHANECHOL 25 MG (URECHOLINE) TAB PO SCH ×3 (11:38→19:50)
[2016-07-16] MEDS: DOCUSATE SODIUM 100 MG (COLACE) CAP PO PRN ×2 (11:41→19:50)
[2016-07-16] MEDS ORDERED: LYSINE PO SCH (12:00)
--- NOTE | 2016-07-16 14:09 | Physical Therapy Evaluation ---
PT Evaluation-General Medical Diagnosis Admission Date Jul 14, 2016 at 23:55 Medical Diagnosis: Dehydration Onset Date: Jul 15, 2016 Therapy Diagnosis Therapy Diagnosis: weakness, immobility Height/Weight Height (Feet): 6 Height (Inches): 0.00 Weight (Pounds): 180 Weight (Ounces): 2.4 Precautions Precautions/Isolations: Aspiration, Fall Prevention, Standard Precautions Weight Bear Status Weight Bearing Restriction: Extremity Location Restriction: L UE Comments (L) rotator cuff repair in April 2016, passive range only Referral Physician: Malina Barger Reason for Referral: Evaluation/Treatment, Strengthening, Gait Medical History Pertinent Medical History: Back Injury, GERD, HTN, Hypothroidism Additional Medical History glioblastoma with resection of tumor, (L) rotator cuff repair, chronic UTI, hypothyroid, (L) side weaknessfalls Current History Starting in May of 2016 pt began to have a decline in function. He was diagnosed with a new brain tumor, closer to the brain stem. Over the last several days his reports he became nauseated at home and has been having vomiting. he was admitted through the ER on 07/15/16 with a dx of dehydration. His wants him to have therapy to prevent loss of strength and ROM while in the hospital. He is receiving home health PT and OT. Social History Home: Single Level Current Living Status: Spouse PT uses a w/c as his primary means of locomotion at home. His gets him up in the am then puts him back to bed while she goes to work. A neighbor checks on him periodically through the day until gets home from work at 2pm. he transfers with ModA from . Prior/Core FIM Prior Level of Function Functional [place] Measure 0=Not Assessed/NA 4=Minimal Assistance 1=Total Assistance 5=Supervision or Setup 2=Maximal Assistance 6=Modified [place] 3=Moderate Assistance 7=Complete [place] Bed Mobility: 3 Transfers (B,C,W/C) (FIM): 3 Gait: 1 PT Evaluation-Current Subjective Pt nauseated. He answers questions appropriately 50% of the time. C/O feeling dizzy. Pt/Family Goals Return home with assist from Home Health Objective Patient Orientation: Person Problem Solving: Poor Attachments: Alvarado Catheter, IV ROM/Strength ROM Upper Extremities (L) LE has high tone. Limited active shoulder mobility due to rotator cuff repair. (L) elbow and wrist poor control. (R) UE is WNL ROM Lower Extremities (R) LE is WNL, (L) limited active control due to tone, PROM is wnl Strength Upper Extremities (R) WNL, (L) not assessed due to tone Strenght Lower Extremities (R) is WNL, (L) is not tested due to tone Sensory Vision: Blind Legally Hearing: Impaired Transfers Functional [place] Measure 0=Not Assessed/NA 4=Minimal Assistance 1=Total Assistance 5=Supervision or Setup 2=Maximal Assistance 6=Modified [place] 3=Moderate Assistance 7=Complete [place] Transfers (B, C, W/C) (FIM): 1 Scootin Rollin Supine to/from Sit: 2 Sit to/from Stand: 2 needs assist of 2 secondary to poor control of the (L) LE and poor trunk control. Gait Distance (FIM): 0=does not occure Balance Sitting Static: Poor Sitting Dynamic: Poor Standing Static: Poor Standing Dynamic: Poor Assessment/Needs Pt has reduced physical mobility due to turnk weakness and uncontrolled tone in the (L) lower and upper extremity. Impaired cognition, vision, and hearing are also limitations. Pt will benefit from therapy to work on LE motor control, sitting, balance, and transfers. Rehab Potential: Guarded Post Rehab Potential-Barriers: active braing tumor, recent rotator cuff repair PT Short Term Goals Short Term Goals Time Frame: Jul 23, 2016 Transfers (B,C,W/C) (FIM): 2 Additional Short Term Goals PT will be able to sit edge of bed with Minimal assist so that his can perform hygiene tasks. PT Nursing Home Goals Nursing Home Goals PT Nursing Home Goals Time Frame: Jul 30, 2016 Transfers (B,C,W/C) (FIM): 3 PT Plan Problem List Problem List: Functional Strength, Safety, Balance, Transfer, Bed Mobility, ROM Treatment/Plan Treatment Plan: Continue Plan of Care Treatment Plan: Bed Mobility, Education, Functional Strength, Safety, Therapeutic Exercise, Transfers # of days/week 6 Visits Per Week: 10 Minutes/Day (M-F): 15-30 Minutes/Day (Sat/[place]): 15 Pt/Family Agrees w/Plan: Yes Plan to see pt 1 visit on this date due to nausea. Plan to progress to twice per day with single visits on thursday. Safety Risks/Education Patient Education: Transfer Techniques, Correct Positioning, Instructions to Caregiver, Safety Issues Teaching Recipient: Patient, Family Teaching Methods: Demonstration, Discussion Discharge Recommendations Therapy D/C Recommendations: Home w/ Family Support, Occupational Therapy Home Care, Physical Therapy Home Care Time/GCodes Time In: 1100 Time Out: 1150 Total Billed Treatment Time: 50 Total Billed Treatment visit, evaluation MASTER Victor PT Jul 16, 2016 14:09
--- NOTE | 2016-07-16 14:54 | Occupational Therapy Eval ---
OT Evaluation-General/PLF Medical Diagnosis Admission Date Jul 14, 2016 at 23:55 Medical Diagnosis: Dehydration Onset Date: Jul 15, 2016 Therapy Diagnosis Therapy Diagnosis: decreased functional use L UE, decreased self care Height/Weight Height (Feet): 6 Height (Inches): 0.00 Weight (Pounds): 180 Weight (Ounces): 2.4 Precautions Precautions/Isolations: Aspiration, Fall Prevention, Standard Precautions Safety Interventions: Bed Exit Alarm, Reorient-Attempt Weight Bear Status Weight Bearing Restriction: Extremity Location Restriction: L UE Referral Physician: Malina Barger Referral Reason: Evaluation/Treatment Medical History Pertinent Medical History: Back Injury, GERD, HTN, Hypothroidism, Smoking Additional Medical History Visual and hearing deficits due to brain tumors (does not see in R visual field) . Had resection of glioblastoma and was on ARU in the spring. Chronic back pain. Headaches/migraines. L rotator cuff repair about 2 months ago, now just doing PROM Current History Starting in May of 2016 pt began to have a decline in function. He was diagnosed with a new brain tumor, closer to the brain stem and is getting chemotherapy. Over the last several days his reports he became nauseated at home and has been having vomiting. he was admitted through the ER on with a dx of dehydration. His wants him to have therapy to prevent loss of strength and ROM while in the hospital. He is receiving home health PT and OT. Reviewed History: Yes Social History Home: Single Level Current Living Status: Spouse ADL-Prior Level of Function ADL PLOF Comments When pt left ARU he was min to setup for most ADLs and had been working on functional use of L UE. Now he needs assistance for almost all of his ADLs due to decreased visual field and functional use L UE. He generally needed mod assist for transfers. He has not qualified for Pt's reported that, as of two weeks ago, he had been able to press the strings on a ukulele with his L hand but today it has significantly decreased function due to increased tone. She would like OT to focus on increasing use of L hand DME/Equipment Comments reports she has appropriate DME at home. She has difficulty getting his feet over lip in shower but this is not a big concern for her at this time. Occupation: musician Drive Self: No OT Current Status Subjective Pt seen in room, difficulty seeing in R visual field. No pain mentioned but he had recently vomited. Appearance Alert, cooperative Mental Status/Objective Attachments: IV Current Upper Extremity ROM L shoulder in sling and limited to passive movement due to rotator cuff repair. L elbow PROM WFL. Pt demonstrates increased tone in L hand, with wrist and fingers in flexion. Pt limited in ability to open hand. Pt has double vision, helped by use of eye patch. Does not look past midline to R visual field. Impulsive ADL-Treatment Functional [place] Measure 0=Not Assessed/NA 4=Minimal Assistance 1=Total Assistance 5=Supervision or Setup 2=Maximal Assistance 6=Modified [place] 3=Moderate Assistance 7=Complete IndependenceIRFPAI Quality Coding Scale 6 Independent with activity with or without an assistive device 5 Patient requires set up or clean up by helper. Patient completes activity by themselves 4 Supervision or touching assist (CGA). [place] provide cues , steadying assist 3 The helper provides less than half the effort to complete the activity 2 The helper provides more than half the effort to complete the activity 1 Dependent. The helper does all the effort to complete an activity 7 Patient refused to complete or attempt activity 9 The patient did not perform the activity before the current illness or injury 88 Not attempted due to Medical conditions or safety concerns Education OT Patient Education: Purpose of tx/functional activities, Rehab process Teaching Recipient: Patient, Significant Other Teaching Methods: Discussion Response to Teaching: Verbalize Understanding OT Short Term Goals Short Term Goals Time Frame: Jul 23, 2016 Transfers (B,C,W/C) (FIM): 2 Other Pt will be able to use L UE as an assist or during three functional activities Additional Short Term Goals: 3-ImproveStrength/Husam 1=Demonstrate adherence to instructed precautions during ADL tasks. 2=Patient will verbalize/demonstrate understanding of assistive devices/ modifications for ADL. 3=Patient will improve strength/tolerance for activity to enable patient to perform ADL's. OT Fpc Goals Fpc Goals 1=Demonstrate adherence to instructed precautions during ADL tasks. 2=Patient will verbalize/demonstrate understanding of assistive devices/ modifications for ADL. 3=Patient will improve strength/tolerance for activity to enable patient to perform ADL's. OT Education/Plan Problem List/Assessment Assessment: Decreased Safety Aware, Decreased UE Strength, Impaired Self-Care Skills, Restricted Funct UE ROM, Visual-Perceptual Deficit Pt would benefit from skilled OT to increase the functional use of his L UE to be able to use it during ADLs and for leisure activities Discharge Recommendations Plan/Recommendations: Continue POC Treatment Plan/Plan of Care Treatment,Training & Education: Yes Patient would benefit from OT for education, treatment and training to promote independence in ADL's, mobility, safety and/or upper extremity function for ADL' s. Plan of Care: UE Funct Exercise/Act, UE Neuromus Re-Ed/Coord Treatment Duration: Jul 23, 2016 # of days/week 5 Visits Per Week: 5 Agreement: Yes Rehab Potential: Guarded Time/GCodes Start Time: 11:50 Stop Time: 12:00 Total Time Billed (hr/min): 10 Billed Treatment Time visit, 10 minutes evaluation SHAYAN TELLEZ OT Jul 16, 2016 14:54
--- NOTE | 2016-07-16 16:25 | Occupational Ther Daily Note ---
OT Current Status-Daily Note Subjective Pt seen in room, in bed, agreeable to OT. No pain mentioned Appearance Alert, cooperative Mental Status/Objective Functional [place] Measure 0=Not Assessed/NA 4=Minimal Assistance 1=Total Assistance 5=Supervision or Setup 2=Maximal Assistance 6=Modified [place] 3=Moderate Assistance 7=Complete [place] Attachments: Alvarado Catheter, IV Other Treatment Gentle facilitation techniques used to decrease the abnormal tone in L hand, wrist and forearm. Could get elbow flexed to about 90 degrees, fingers almost fully extended, thumb in abduction and wrist to about 10 degrees extension but, if pt yawned or moved L UE, fingers and wrist flexed again. Pt was unable to intentionally move L UE except for some supination. he also was unaware of the position of his fingers. Pt pulled up in bed, L arm supported on pillow. Education OT Patient Education: Exercise program, Purpose of tx/functional activities Teaching Recipient: Patient Response to Teaching: Verbalize Understanding OT Short Term Goals Short Term Goals Time Frame: Jul 23, 2016 Transfers (B,C,W/C) (FIM): 2 Other Pt will be able to use L UE as an assist or during three functional activities Additional Short Term Goals: 3-ImproveStrength/Husam 1=Demonstrate adherence to instructed precautions during ADL tasks. 2=Patient will verbalize/demonstrate understanding of assistive devices/ modifications for ADL. 3=Patient will improve strength/tolerance for activity to enable patient to perform ADL's. OT Group President Goals Group President Goals 1=Demonstrate adherence to instructed precautions during ADL tasks. 2=Patient will verbalize/demonstrate understanding of assistive devices/ modifications for ADL. 3=Patient will improve strength/tolerance for activity to enable patient to perform ADL's. OT Education/Plan Problem List/Assessment Pt would benefit from skilled OT to increase the functional use of his L UE to be able to use it during ADLs and for leisure activities Discharge Recommendations Plan/Recommendations: Continue POC Treatment Plan/Plan of Care Patient would benefit from OT for education, treatment and training to promote independence in ADL's, mobility, safety and/or upper extremity function for ADL' s. Plan of Care: UE Funct Exercise/Act, UE Neuromus Re-Ed/Coord Treatment Duration: Jul 23, 2016 Visits Per Week: 5 Agreement: Yes Rehab Potential: Guarded Time/GCodes Start Time: 15:55 Stop Time: 16:15 Total Time Billed (hr/min): 20 Billed Treatment Time visit, 20 minutes neuromotor SHAYAN TELLEZ OT Jul 16, 2016 16:24
[2016-07-16] MEDS: ALFUZOSIN HCL 10 MG TAB (UROXATRAL) PO SCH (18:30)
[2016-07-16] MEDS: BACLOFEN 10 MG (LIORESAL) TAB PO SCH (19:49)
[2016-07-16] MEDS: APIXABAN 5 MG (ELIQUIS) TABLET PO SCH (19:49)
[2016-07-16] MEDS: NITROFURANTOIN 100 MG (MACROBID) CAPSULE PO SCH (19:49)
[2016-07-16] MEDS: LEVETIRACETAM 500 MG (KEPPRA) TAB PO SCH (19:49)
[2016-07-16] MEDS: FAMOTIDINE 20 MG (PEPCID) TABLET PO SCH (19:50)
[2016-07-16] MEDS: traZODone 50 MG (DESYREL) TAB PO SCH (19:56)
[2016-07-17] VITALS: BP 165/104
[2016-07-17] MEDS: ONDANSETRON 4 MG/2 ML (SDV) Z0FRAN IV PRN ×4 (00:17→21:41)
[2016-07-17] MEDS: ALPRAZolam 0.5 MG (XANAX) TAB PO PRN (00:17)
[2016-07-17] MEDS ORDERED: BENAZEPRIL 20 MG (LOTENSIN) TAB ONE (00:35)
[2016-07-17] MEDS: BENAZEPRIL 20 MG (LOTENSIN) TAB PO SCH ×2 (00:48→10:17)
[2016-07-17 04:00] VITALS: BP 130/75
[2016-07-17] MEDS: MULTIVIT W/MINERALS TAB (THERAGRAN M) PO SCH ×2 (05:08→12:44)
[2016-07-17] MEDS: LEVOTHYROXINE 150 MCG (LEVOTHROID) TAB PO SCH (05:32)
[2016-07-17] MEDS: BETHANECHOL 25 MG (URECHOLINE) TAB PO SCH ×4 (05:32→22:09)
[2016-07-17] MEDS: CATHETER FLUSH 10 ML SYR IV SCH ×3 (05:36→22:00)
[2016-07-17 05:39] LABS: MEAN PLATELET VOLUME 10.4 FL (7.4-10.4); RED CELL DISTRIBUTION WIDTH 13.5 % (10.0-14.5); WHITE BLOOD COUNT 7.2 10^3/uL (4.3-11.0)
[2016-07-17 06:10] LABS: ALANINE AMINOTRANSFERASE 46 U/L (0-55); ALBUMIN 3.4 G/DL (3.2-4.5); ANION GAP 8 MMOL/L (5-14); ASPARTATE AMINO TRANSFERASE 35 U/L (5-34); BILIRUBIN,TOTAL 0.6 MG/DL (0.1-1.0); BLOOD UREA NITROGEN 10 MG/DL (7-18); BUN/CREATININE RATIO 13; CALCIUM 8.5 MG/DL (8.5-10.1); CARBON DIOXIDE 24 MMOL/L (21-32); CHLORIDE 107 MMOL/L (98-107); GFR ESTIMATED > 60; GLUCOSE 91 MG/DL (70-105); POTASSIUM 2.8 MMOL/L (3.6-5.0); SODIUM 139 MMOL/L (135-145); TOTAL PROTEIN 5.3 G/DL (6.4-8.2)
[2016-07-17 08:00] VITALS: BP 139/86
--- NOTE | 2016-07-17 08:57 | Progress Note (SOAP) ---
Subjective Subjective/Events-last exam patient was seen yesterday. Computer froze on me. Patient potassium slightly low. Patient did converse with me today. Patient is going downhill and may not t be able to take care of patient Objective Exam Vital Signs Date Time Temp Pulse Resp B/P Pulse Ox O2 Delivery O2 Flow Rate FiO2 07/17/16 04:00 96.6 82 20 130/75 94 Room Air 07/17/16 00:00 97.1 79 20 165/104 96 Room Air 07/16/16 20:00 97.6 64 20 157/80 93 Room Air 07/16/16 19:45 Room Air 07/16/16 19:15 Room Air 07/16/16 16:00 97.5 78 20 163/81 94 Room Air 07/16/16 12:00 97.0 73 22 167/89 97 Room Air I & O 07/17/16 07:00 Intake Total 2050 ml Output Total 1600 ml Balance 450 ml Capillary Refill : Less Than 3 Seconds General Appearance: No Apparent Distress WD/WN HEENT: Normal ENT Inspection Neck: Normal Inspection Respiratory: No Accessory Muscle Use No Respiratory Distress Other (vomiting up phlegm) Cardiovascular: Regular Rate, Rhythm Gastrointestinal: soft Results Lab Laboratory Tests 07/17/16 05:22 07/17/16 05:32 Laboratory Tests 07/17/16 05:22: Alanine Aminotransferase (ALT/SGPT) 46, Albumin 3.4, Alkaline Phosphatase 46, Anion Gap 8, Aspartate Amino Transf (AST/SGOT) 35H, BUN/Creatinine Ratio 13, Blood Urea Nitrogen 10, Calcium Level 8.5, Carbon Dioxide Level 24, Chloride Level 107, Creatinine 0.80, Estimat Glomerular Filtration Rate > 60, Glucose Level 91, Potassium Level 2.8L, Sodium Level 139, Total Bilirubin 0.6, Total Protein 5.3L 07/17/16 05:32: Hematocrit 36L, Hemoglobin 12.3L, Mean Corpuscular Hemoglobin 31, Mean Corpuscular Hemoglobin Concent 35, Mean Corpuscular Volume 89, Mean Platelet Volume 10.4, Platelet Count 184, Red Blood Count 4.00L, Red Cell Distribution Width 13.5, White Blood Count 7.2 Microbiology 07/14/16 Blood Culture - Preliminary, Resulted No growth 07/14/16 Urine Culture - Final, Complete Lactobacillus Species Assessment/Plan Assessment/Plan Assess & Plan/Chief Complaint brain tumor. Hypokalemia. Patient not improving. Patient to take chemotherapy pill today. Diagnosis/Problems: Clinical Quality Measures DVT/VTE Risk/Contraindication: Risk Factor Score Per Nursin RFS Level Per Nursing on Admit: 4+=Very High Contraindications-Pharm: Other *list below* ADDISON ZULETA DO Jul 17, 2016 08:57
[2016-07-17] MEDS ORDERED: TEMOZOLOMIDE 100 MG PO SCH ×2 (09:00)
[2016-07-17] MEDS ORDERED: PATIENT MAY USE OWN MED,SINGLE MED PO SCH (09:00)
--- NOTE | 2016-07-17 09:46 | Physical Therapy Daily Note ---
PT Daily Note-Current Subjective Patient is in bed with display of severe lean to right with bilateral LE's hanging over the end of the bed. Pain Numeric Pain Scale: 0-No Pain Location: No Pain Reported Mental Status Patient Orientation: Confused Attachments: Alvarado Catheter, IV Transfers Functional [place] Measure 0=Not Assessed/NA 4=Minimal Assistance 1=Total Assistance 5=Supervision or Setup 2=Maximal Assistance 6=Modified [place] 3=Moderate Assistance 7=Complete IndependenceIRFPAI Quality Coding Scale 6 Independent with activity with or without an assistive device 5 Patient requires set up or clean up by helper. Patient completes activity by themselves 4 Supervision or touching assist (CGA). [place] provide cues , steadying assist 3 The helper provides less than half the effort to complete the activity 2 The helper provides more than half the effort to complete the activity 1 Dependent. The helper does all the effort to complete an activity 7 Patient refused to complete or attempt activity 9 The patient did not perform the activity before the current illness or injury 88 Not attempted due to Medical conditions or safety concerns Transfers (B, C, W/C) (FIM): 1 Scootin Rollin Supine to/from Sit: 1 Sit to/from Stand: 1 Bed to/from Chair: 1 dependent assist x 2 with SPT with patient resisting and displaying severe lean to right with inability to self correct or allow PT to assist with correction. Exercises Supine Ex: Ankle pumps, Heel Slides Supine Reps: 20 (PROM) Assessment Patient is confused and unable to follow simple direction at this time. Patient displays severe lean to right with inability to self correct or allow assistance to correct. Patient has noted increased tone left LE with significant loss of proprioception and coordination bilaterally. Patient requires dependent assist with all gross motor skills and has Poor balance in sit and stand. RN notified of PT treatment. PT Short Term Goals Short Term Goals Time Frame: Jul 23, 2016 Transfers (B,C,W/C) (FIM): 2 PT Nursing Home Goals Nursing Home Goals PT Director [employer] Goals Time Frame: Jul 30, 2016 Transfers (B,C,W/C) (FIM): 3 PT Plan Treatment/Plan Treatment Plan: Continue Plan of Care, Modify Plan, see comments (PT to continue with daily M-Sat treatments) Treatment Plan: Bed Mobility, Education, Functional Strength, Safety, Therapeutic Exercise, Transfers Visits Per Week: 10 Minutes/Day (M-F): 15-30 Minutes/Day (Sat/Stevenson): 15 Time/GCodes Time In: 925 Time Out: 937 Total Billed Treatment Time: 12 Total Billed Treatment 1 visit FA 12 min NGUYỄN LEES PT Jul 17, 2016 09:46
[2016-07-17] MEDS: BACLOFEN 10 MG (LIORESAL) TAB PO SCH ×2 (10:16→22:09)
[2016-07-17] MEDS: APIXABAN 5 MG (ELIQUIS) TABLET PO SCH ×2 (10:16→22:09)
[2016-07-17] MEDS: LORATADINE (CLARITIN) 10 MG TAB PO SCH (10:16)
[2016-07-17] MEDS: LEVETIRACETAM 500 MG (KEPPRA) TAB PO SCH ×2 (10:16→22:08)
[2016-07-17] MEDS: FLUDROCORTISONE 0.1 MG (FLORINEF) TAB PO SCH (10:17)
[2016-07-17] MEDS: FAMOTIDINE 20 MG (PEPCID) TABLET PO SCH ×2 (10:17→22:09)
[2016-07-17] MEDS ORDERED: NORMAL SALINE (BAXTER MINI) 50 ML IV ONE (10:23)
[2016-07-17] MEDS ORDERED: cefTRIAXone 1 GM (ROCEPHIN) VIAL ONE (10:23)
[2016-07-17] MEDS: cefTRIAXone INJECTION 1,000 MG in NORMAL SALINE (BAXTER MINI) 50 ML IV SCH (10:31)
[2016-07-17] MEDS: predniSONE 10 MG TAB PO SCH ×2 (10:35→22:07)
[2016-07-17] MEDS: POTASSIUM CL 10MEQ/50ML IVPB 50 ML IV SCH ×6 (11:10→17:16)
[2016-07-17 12:00] VITALS: BP 150/86
[2016-07-17] MEDS: NS IV 1000 ML 1,000 ML IV SCH (12:44)
--- NOTE | 2016-07-17 12:59 | Occupational Ther Daily Note ---
OT Current Status-Daily Note Subjective Pt finishing up with PT. Alert, sitting in recliner. No c/o pain at this time. Mental Status/Objective Functional [place] Measure 0=Not Assessed/NA 4=Minimal Assistance 1=Total Assistance 5=Supervision or Setup 2=Maximal Assistance 6=Modified [place] 3=Moderate Assistance 7=Complete [place] ADL-Treatment Pt demonstrating significant L neglect. Pt unable to bring head and shldr to midline. OT worked with self feeding. Pt was able to hold onto coffee cup and bring custodial to mouth then unable to bring to mouth. Pt was able to scoop with L hand then unable to bring to mouth without spillage. Pt fell asleep during eating, woke with patting chest. Pt coughing throughout treatment. After therapy, pt's present in room. Pt sitting in recliner with call light/phone in reach. All needs met in room. OT Short Term Goals Short Term Goals Time Frame: Jul 23, 2016 Transfers (B,C,W/C) (FIM): 2 Other Pt will be able to use L UE as an assist or during three functional activities Additional Short Term Goals: 3-ImproveStrength/Husam 1=Demonstrate adherence to instructed precautions during ADL tasks. 2=Patient will verbalize/demonstrate understanding of assistive devices/ modifications for ADL. 3=Patient will improve strength/tolerance for activity to enable patient to perform ADL's. OT Intermediate Goals Cytotechnologist Supervisor Goals 1=Demonstrate adherence to instructed precautions during ADL tasks. 2=Patient will verbalize/demonstrate understanding of assistive devices/ modifications for ADL. 3=Patient will improve strength/tolerance for activity to enable patient to perform ADL's. OT Education/Plan Problem List/Assessment Pt would benefit from skilled OT to increase the functional use of his L UE to be able to use it during ADLs and for leisure activities Discharge Recommendations Plan/Recommendations: Continue POC Treatment Plan/Plan of Care Patient would benefit from OT for education, treatment and training to promote independence in ADL's, mobility, safety and/or upper extremity function for ADL' s. Plan of Care: UE Funct Exercise/Act, UE Neuromus Re-Ed/Coord Treatment Duration: Jul 23, 2016 Visits Per Week: 5 Agreement: Yes Rehab Potential: Guarded Time/GCodes Start Time: 09:30 Stop Time: 09:55 Total Time Billed (hr/min): 25 Billed Treatment Time 1 visit-FA 2 (25 min) IKER FREEMAN Jul 17, 2016 12:59
--- NOTE | 2016-07-17 14:45 | Physical Therapy Daily Note ---
PT Daily Note-Current Subjective Patient is very lethargic and spouse is present and voices many concerns about patient's condition and POC. Pain Numeric Pain Scale: 0-No Pain Location: No Pain Reported Mental Status Patient Orientation: Confused Attachments: Alvarado Catheter, IV Transfers Functional [place] Measure 0=Not Assessed/NA 4=Minimal Assistance 1=Total Assistance 5=Supervision or Setup 2=Maximal Assistance 6=Modified [place] 3=Moderate Assistance 7=Complete IndependenceIRFPAI Quality Coding Scale 6 Independent with activity with or without an assistive device 5 Patient requires set up or clean up by helper. Patient completes activity by themselves 4 Supervision or touching assist (CGA). [place] provide cues , steadying assist 3 The helper provides less than half the effort to complete the activity 2 The helper provides more than half the effort to complete the activity 1 Dependent. The helper does all the effort to complete an activity 7 Patient refused to complete or attempt activity 9 The patient did not perform the activity before the current illness or injury 88 Not attempted due to Medical conditions or safety concerns Transfers (B, C, W/C) (FIM): 1 Scootin Rollin Supine to/from Sit: 1 dependent assist with all mobility; transfers to right are recommended due to left neglect. Exercises Supine Ex: Ankle pumps, Heel Slides, Straight leg raise Supine Reps: 10 (PROM left LE due to increase tone and left neglect) Assessment Patient making minimal progress with PT after 3 sessions. PT to increase activity as patient tolerates. At this time, patient is unable to tolerate intense therapy. PT Short Term Goals Short Term Goals Time Frame: Jul 23, 2016 Transfers (B,C,W/C) (FIM): 2 PT Mcfp Goals Mcfp Goals PT Clinical Biostatistics Director Goals Time Frame: Jul 30, 2016 Transfers (B,C,W/C) (FIM): 3 PT Plan Treatment/Plan Treatment Plan: Continue Plan of Care Treatment Plan: Bed Mobility, Education, Functional Strength, Safety, Therapeutic Exercise, Transfers Visits Per Week: 10 Minutes/Day (M-F): 15-30 Minutes/Day (Sat/[place]): 15 Time/GCodes Time In: 1400 Time Out: 1415 Total Billed Treatment Time: 15 Total Billed Treatment 1 visit FA 15 min NGUYỄN LEES PT Jul 17, 2016 14:45
--- NOTE | 2016-07-17 15:02 | Speech Therapy Progress Note ---
Therapy Progress Note Dysphagia assessment consult received and patient's chart reviewed. The speech pathologist presented to patient's room for completion of swallow evaluation. Per patient's , the patient is extremely fatigued due to "being up for a very long time." The speech pathologist repositioned the patient in an upright position in bed. The patient intermittently opened eyes, however, consistent maximum verbal prompting was required for alertness. The patient minimally participated in an oral mechanism exam and consumed three straw drinks of water and one bite of applesauce. Due to the patient's fatigue and decreased participation, the dysphagia evaluation was terminated. No signs/symptoms of aspiration were demonstrated with the limited oral trials provided. As a complete assessment could not be completed, formal recommendations cannot be provided by this clinician. The clinician will re-attempt the evaluation as appropriate. Pending complete assessment the patient should: 1. Be seated upright (90 degrees) for all PO intake. 2. Crush medications and place in puree. 3. Small bites and sips, only. 4. Be alert for all PO intake. The above was discussed with the patient's who verbalized comprehension and denied additional questions. JONATHAN RENE Jul 17, 2016 15:02
[2016-07-17 16:00] VITALS: BP 145/89
[2016-07-17] MEDS: DOCUSATE SODIUM 100 MG (COLACE) CAP PO PRN (19:18)
[2016-07-17] MEDS: ALFUZOSIN HCL 10 MG TAB (UROXATRAL) PO SCH (19:18)
[2016-07-17] MEDS: TEMOZOLOMIDE PO SCH (22:07)
[2016-07-17] MEDS: traZODone 50 MG (DESYREL) TAB PO SCH (22:08)
[2016-07-17] MEDS: NITROFURANTOIN 100 MG (MACROBID) CAPSULE PO SCH (22:09)
[2016-07-18] VITALS: BP_SYST 152; BP_SYST 175; BP_DIAS 83; BP_DIAS 96
[2016-07-18] MEDS: NS IV 1000 ML 1,000 ML IV SCH ×3 (03:46→17:25)
[2016-07-18] MEDS: ONDANSETRON 4 MG/2 ML (SDV) Z0FRAN IV PRN ×2 (03:46→23:06)
[2016-07-18] MEDS: CATHETER FLUSH 10 ML SYR IV SCH ×3 (05:17→23:03)
[2016-07-18] MEDS: BETHANECHOL 25 MG (URECHOLINE) TAB PO SCH ×4 (05:42→22:48)
[2016-07-18] MEDS: LEVOTHYROXINE 150 MCG (LEVOTHROID) TAB PO SCH (05:43)
[2016-07-18 05:56] LABS: ANION GAP 9 MMOL/L (5-14); BLOOD UREA NITROGEN 8 MG/DL (7-18); BUN/CREATININE RATIO 10; CALCIUM 8.4 MG/DL (8.5-10.1); CARBON DIOXIDE 21 MMOL/L (21-32); CHLORIDE 110 MMOL/L (98-107); GFR ESTIMATED > 60; GLUCOSE 106 MG/DL (70-105); POTASSIUM 3.6 MMOL/L (3.6-5.0); SODIUM 140 MMOL/L (135-145)
[2016-07-18 08:00] VITALS: BP 153/89
--- NOTE | 2016-07-18 08:14 | Progress Note (SOAP) ---
Subjective Subjective/Events-last exam patient lethargic yesterday. Patient confused last night. Patient awake this morning. Evaluate for rehabilitation Objective Exam Vital Signs Date Time Temp Pulse Resp B/P Pulse Ox O2 Delivery O2 Flow Rate FiO2 07/18/16 00:00 96.9 76 20 152/83 94 Room Air 07/17/16 20:00 Room Air 07/17/16 16:00 97.3 68 20 145/89 94 Room Air 07/17/16 12:00 97.3 82 16 150/86 92 Room Air I & O 07/18/16 07:00 Intake Total 3720 ml Output Total 1200 ml Balance 2520 ml Capillary Refill : Less Than 3 Seconds General Appearance: No Apparent Distress WD/WN Neck: Normal Inspection Respiratory: Chest Non Tender Normal Breath Sounds No Accessory Muscle Use Cardiovascular: Regular Rate, Rhythm Gastrointestinal: non tender soft Results Lab Laboratory Tests 07/18/16 05:25 Laboratory Tests 07/18/16 05:25: Anion Gap 9, BUN/Creatinine Ratio 10, Blood Urea Nitrogen 8, Calcium Level 8.4L , Carbon Dioxide Level 21, Chloride Level 110H, Creatinine 0.80, Estimat Glomerular Filtration Rate > 60, Glucose Level 106H, Potassium Level 3.6, Sodium Level 140 Microbiology 07/14/16 Blood Culture - Preliminary, Resulted No growth 07/14/16 Urine Culture - Final, Complete Lactobacillus Species Assessment/Plan Assessment/Plan Assess & Plan/Chief Complaint brain tumor. Hypokalemia. Patient not improving. Patient to take chemotherapy pill today. 07/18. Brain tumor. Glioblastoma. Family waiting for rehabilitation. [facility] not a candidate spoke to them yesterday. Diagnosis/Problems: Clinical Quality Measures DVT/VTE Risk/Contraindication: Risk Factor Score Per Nursin RFS Level Per Nursing on Admit: 4+=Very High Contraindications-Pharm: Other *list below* ADDISON ZULETA DO Jul 18, 2016 08:14
[2016-07-18] MEDS ORDERED: FLEET ENEMA ADULT 1 EA BTL PR ONE (08:30)
[2016-07-18] MEDS: METOCLOPRAMIDE INJ 10 MG/2 ML (REGLAN) IVP SCH ×3 (08:45→16:55)
[2016-07-18] MEDS ORDERED: cefTRIAXone INJECTION 1,000 MG in NORMAL SALINE (BAXTER MINI) 50 ML IV SCH (09:00)
--- NOTE | 2016-07-18 09:33 | Physical Therapy Daily Note ---
PT Daily Note-Current Subjective Patient is in bed and reluctantly agrees to therapy. Pain Numeric Pain Scale: 0-No Pain Location: No Pain Reported Mental Status Patient Orientation: Confused Attachments: Alvarado Catheter, IV Transfers Functional [place] Measure 0=Not Assessed/NA 4=Minimal Assistance 1=Total Assistance 5=Supervision or Setup 2=Maximal Assistance 6=Modified [place] 3=Moderate Assistance 7=Complete IndependenceIRFPAI Quality Coding Scale 6 Independent with activity with or without an assistive device 5 Patient requires set up or clean up by helper. Patient completes activity by themselves 4 Supervision or touching assist (CGA). [place] provide cues , steadying assist 3 The helper provides less than half the effort to complete the activity 2 The helper provides more than half the effort to complete the activity 1 Dependent. The helper does all the effort to complete an activity 7 Patient refused to complete or attempt activity 9 The patient did not perform the activity before the current illness or injury 88 Not attempted due to Medical conditions or safety concerns Transfers (B, C, W/C) (FIM): 1 Scootin Rollin Supine to/from Sit: 1 Sit to/from Stand: 1 Bed to/from Chair: 1 dependent assist x 2 with all mobility. Patient required dependent assist for sit to stand with 3 attempts with patient unable to assist. PT blocked right knee to assist with sit to stand and patient was able to stand to pivot right to recliner. Exercises Supine Ex: Ankle pumps (stretching), Heel Slides (PROM), Straight leg raise ( PROM) Seated Reps: 10 Assessment Patient unable to assist with transfers on this date. Patient continues to present with severe lean to right and the inability to correct even with pillow positioning. PT placed 3 pillows on right side in the recliner to position upright, however, patient is very strong to the right and unable to maintain position. Patient is unable to participate with PT actively and requires dependent assist with all mobility and exercises. PT Short Term Goals Short Term Goals Time Frame: Jul 23, 2016 Transfers (B,C,W/C) (FIM): 2 PT Halfway Goals Assembler Show Motor Goals PT Halfway Goals Time Frame: Jul 30, 2016 Transfers (B,C,W/C) (FIM): 3 PT Plan Treatment/Plan Treatment Plan: Continue Plan of Care Treatment Plan: Bed Mobility, Education, Functional Strength, Safety, Therapeutic Exercise, Transfers Visits Per Week: 10 Minutes/Day (M-F): 15-30 Minutes/Day (Sat/[place]): 15 Time/GCodes Time In: 840 Time Out: 903 Total Billed Treatment Time: 23 Total Billed Treatment 1 visit FA 15 min EX 8 min NGUYỄN LEES PT Jul 18, 2016 09:33
[2016-07-18] MEDS ORDERED: NORMAL SALINE (BAXTER MINI) 50 ML IV ONE (09:45)
[2016-07-18] MEDS ORDERED: cefTRIAXone 1 GM (ROCEPHIN) VIAL ONE (09:45)
--- NOTE | 2016-07-18 09:46 | ST Dysphagia Evaluation ---
Speech Evaluation-General Medical Diagnosis Dehydration Onset Date: Jul 15, 2016 Therapy Diagnosis Therapy Diagnosis: Mild Oropharyngeal Dysphagia Precautions Precautions: Aspiration Precautions/Isolations: Aspiration, Fall Prevention, Standard Precautions Referral Referring Physician: Dr. Hawkins Reason for Referral: Evaluation/Treatment Clinical Bedside Swallowing Evaluation Medical History Pertinent Medical History: Back Injury, GERD, HTN, Hypothroidism, Smoking Glioblastoma Reviewed History: Yes Social History Current Living Status: Spouse Speech PLF/Current-Dysphagia Prior Level of Function The patient was unable to provide prior level of function information to the clinician. Per patient's , the patient was consuming thickened liquids ( unknown thickened consistency) prior to admission due to an increase in mucus. The patient's stated the patient was consuming regular solid consistencies and coughing and choking was not exhibited during PO intake (coughing is present at baseline). Subjective The patient was recently admitted to [facility] with a diagnosis of dehydration. The patient is known to this clinician secondary to a recent stay for a previous known diagnosis of glioblastoma. The patient was sleeping in bed upon entrance. The patient responded to the clinician's greeting, however, promptly closed eyes. The patient agreed to participate in the dysphagia evaluation on this date. CXR: 07/14/2016: No acute process. Cognitive Status The patient did not respond to orientation questions poised by clinician. Oral Motor Skills Dentition: Natural Current Food Consistancy: Clear Liquids Ability to Follow Directions: Poor The etiology of the patient's impaired oral expressive ability is unknown to this clinician due to reduced participation and cooperation throughout assessment. Voice Voice Phonatory-Based Quality: Glottal Amaya Voice Pitch: Normal Voice Loudness: Normal Face Facial Symmetry: Asymmetrical (Right facial droop present.) Oral-Facial Assessment Oral-Facial Dentition: Normal Labial Seal Description: Droops Right, Weak Smile: Droops Right Puff Cheeks: Reduced Strength (Right.) Lingual Protrusion: Normal Lingual ROM: Normal Lingual Strength: Normal Volitional Dry Swallow: Yes Dysphagia Evaluation Consistencies Presented: Regular (Attempted.), Thin Liquid (Teaspoon, Straw), Mechanical Soft (Attempted.), Pureed (Applesauce) Oral Phase: Oral Residue, Right Pocketing, Reduced Oral Transit The patient required maximum clinician verbal prompting to elicit a swallow response with all consistencies tested (oral holding, right pocketing). The patient refused to masticate a cracker or banana for the clinician. Oral residue was noted with applesauce. A delay was noted (moderate) of the pharyngeal swallow onset with all consistencies tested. To note: The patient demonstrated a rigorous, productive cough at baseline. The quality, consistency, or frequency of the cough response did not increase or correlate with bolus trials. Thin Liquid: No signs/symptoms of aspiration were demonstrated with teaspoon or straw trials. The patient's vocal quality remained clear. Puree: No signs/symptoms of aspiration were demonstrated with limited puree bolus trials. Solid/Mechanical Soft: The patient refused trials of solid or mechanical soft consistencies. The patient demonstrated consistent hiccuping behavior throughout evaluation. Dietary Recommendations: Mechanical Soft Liquid Recommendations: Thin Swallowing Precautions: Pocketing (Assess for pocketing (right) throughout and following meals.), Small Bites and Sips, Sitting 90 Degrees 30 Post Intake - Crush medication and place in puree for administration. - Alert and upright for all PO. - Supervision throughout all PO occurrences. Dysphagia Evaluation Summary The patient demonstrated mild oropharyngeal dysphagia characterized by decreased labial strength, reduced lingual coordination, and a delayed pharyngeal swallow response. Speech-Plan Treatment Plan Speech Therapy Treatment Plan: Discontinue ST (Eval, only.) Rehab Potential: Poor Barriers to Learning: Regardless of multiple attempts, the patient continued to demonstrate reduced participation and cooperation with the clinician. Due to reduced participation, a limited evaluation could be completed and the patient appears to be a poor rehabilitation candidate. Safety Risks/Education Teaching Recipient: Patient Teaching Methods: Discussion Response to Teaching: Reinforcement Needed Education Topics Provided: Results, Recommendations (Discussed with RN) Time Speech Therapy Time In: 07:50 Speech Therapy Time Out: 08:00 Total Billed Time: 10 Billed Treatment Time 1ADÁN ELIZABETH ST Jul 18, 2016 09:46
--- NOTE | 2016-07-18 09:53 | Occupational Ther Daily Note ---
OT Current Status-Daily Note Subjective Pt awake, sitting in recliner. Pt agreed to therapy. No c/o pain at this time. Pt was coughing and hiccupping as OT entered room. Nrsg present in room. Mental Status/Objective Patient Orientation: Person Functional [place] Measure 0=Not Assessed/NA 4=Minimal Assistance 1=Total Assistance 5=Supervision or Setup 2=Maximal Assistance 6=Modified [place] 3=Moderate Assistance 7=Complete [place] Attachments: Alvarado Catheter, IV ADL-Treatment Nrsg and OT completed sponge bath with pt. Pt was able to wash face, chest and L arm after being handed a wash clothe. Pt required assist with R arm, lower legs, [place] area and buttocks. Pt required assistance to lean forward and stay there while back was being washed. Pt dependent with donning/doffing socks and shirt. Pt's L UE tight, OT completed PROM on UE. Slight extension of wrist, L elbow in flexion, pt resisted elbow extension with PROM. After therapy, pt sitting in recliner with call light/phone in reach. All needs met in room. OT Short Term Goals Short Term Goals Time Frame: Jul 23, 2016 Transfers (B,C,W/C) (FIM): 2 Other Pt will be able to use L UE as an assist or during three functional activities Additional Short Term Goals: 3-ImproveStrength/Husam 1=Demonstrate adherence to instructed precautions during ADL tasks. 2=Patient will verbalize/demonstrate understanding of assistive devices/ modifications for ADL. 3=Patient will improve strength/tolerance for activity to enable patient to perform ADL's. OT Mattress And Boxsprings Supervisor Goals Residential Goals 1=Demonstrate adherence to instructed precautions during ADL tasks. 2=Patient will verbalize/demonstrate understanding of assistive devices/ modifications for ADL. 3=Patient will improve strength/tolerance for activity to enable patient to perform ADL's. OT Education/Plan Problem List/Assessment Pt would benefit from skilled OT to increase the functional use of his L UE to be able to use it during ADLs and for leisure activities Discharge Recommendations Plan/Recommendations: Continue POC Treatment Plan/Plan of Care Patient would benefit from OT for education, treatment and training to promote independence in ADL's, mobility, safety and/or upper extremity function for ADL' s. Plan of Care: UE Funct Exercise/Act, UE Neuromus Re-Ed/Coord Treatment Duration: Jul 23, 2016 Visits Per Week: 5 Agreement: Yes Rehab Potential: Guarded Time/GCodes Start Time: 09:05 Stop Time: 09:28 Total Time Billed (hr/min): 23 Billed Treatment Time 1 visit-ADL 1 (20 min) EX 1 (13 min) IKER FREEMAN Jul 18, 2016 09:52
[2016-07-18] MEDS: FLUDROCORTISONE 0.1 MG (FLORINEF) TAB PO SCH (10:00)
[2016-07-18] MEDS: BENAZEPRIL 20 MG (LOTENSIN) TAB PO SCH (11:19)
[2016-07-18] MEDS: cefTRIAXone INJECTION 1,000 MG in NORMAL SALINE (BAXTER MINI) 50 ML IV SCH (11:19)
[2016-07-18] MEDS: BACLOFEN 10 MG (LIORESAL) TAB PO SCH ×2 (11:20→22:48)
[2016-07-18] MEDS: DOCUSATE SODIUM 100 MG (COLACE) CAP PO PRN (11:21)
[2016-07-18] MEDS: LEVETIRACETAM 500 MG (KEPPRA) TAB PO SCH ×2 (11:21→22:48)
[2016-07-18] MEDS: MULTIVIT W/MINERALS TAB (THERAGRAN M) PO SCH (11:21)
[2016-07-18] MEDS: LORATADINE (CLARITIN) 10 MG TAB PO SCH (11:22)
[2016-07-18] MEDS: predniSONE 10 MG TAB PO SCH (11:22)
[2016-07-18] MEDS: APIXABAN 5 MG (ELIQUIS) TABLET PO SCH ×2 (11:22→22:48)
[2016-07-18] MEDS: FAMOTIDINE 20 MG (PEPCID) TABLET PO SCH ×2 (11:23→22:48)
--- NOTE | 2016-07-18 13:04 | Physical Therapy Daily Note ---
PT Daily Note-Current Subjective Patient sitting in recliner with eye patch over right eye and left eye closed. RN and spouse present attempting to have patient take crushed meds. Pain Numeric Pain Scale: 0-No Pain Location: No Pain Reported Mental Status Patient Orientation: Confused Attachments: Alvarado Catheter, IV Transfers Functional [place] Measure 0=Not Assessed/NA 4=Minimal Assistance 1=Total Assistance 5=Supervision or Setup 2=Maximal Assistance 6=Modified [place] 3=Moderate Assistance 7=Complete IndependenceIRFPAI Quality Coding Scale 6 Independent with activity with or without an assistive device 5 Patient requires set up or clean up by helper. Patient completes activity by themselves 4 Supervision or touching assist (CGA). [place] provide cues , steadying assist 3 The helper provides less than half the effort to complete the activity 2 The helper provides more than half the effort to complete the activity 1 Dependent. The helper does all the effort to complete an activity 7 Patient refused to complete or attempt activity 9 The patient did not perform the activity before the current illness or injury 88 Not attempted due to Medical conditions or safety concerns Transfers (B, C, W/C) (FIM): 1 Scootin Rollin Supine to/from Sit: 1 Sit to/from Stand: 1 Bed to/from Chair: 1 2 attempts with sit to stand transfers dependent assist x 2 with 1 SBA. At 3rd attempt, patient was able to assist with right LE to stand with PT blocking right knee to keep it extended for safe transfer. Spouse giving patient cues to pivot slowly with right LE, however, patient unable to perform this task. Assessment Patient is supine in bed and positioned with pillows on right side to keep patient upright due to severe left neglect and right lean. Patient tolerates minimal activity. Spouse continues to voice concern with patient's progress or lack of progress. PT Short Term Goals Short Term Goals Time Frame: Jul 23, 2016 Transfers (B,C,W/C) (FIM): 2 PT Intermediate Goals Digital Asset Manager Goals PT Digital Asset Manager Goals Time Frame: Jul 30, 2016 Transfers (B,C,W/C) (FIM): 3 PT Plan Treatment/Plan Treatment Plan: Continue Plan of Care Treatment Plan: Bed Mobility, Education, Functional Strength, Safety, Therapeutic Exercise, Transfers Visits Per Week: 10 Minutes/Day (M-F): 15-30 Minutes/Day (Sat/Stevenson): 15 Time/GCodes Time In: 1202 Time Out: 1212 Total Billed Treatment Time: 10 Total Billed Treatment 1 visit FA 10 min G Codes Necessary: NGUYỄN Pelaez PT Jul 18, 2016 13:04
[2016-07-18 16:00] VITALS: BP 157/97
[2016-07-18] MEDS: ALFUZOSIN HCL 10 MG TAB (UROXATRAL) PO SCH (18:00)
[2016-07-18 20:34] LABS: MEAN PLATELET VOLUME 10.3 FL (7.4-10.4); RED BLOOD COUNT 4.02 10^6/uL (4.35-5.85); RED CELL DISTRIBUTION WIDTH 13.5 % (10.0-14.5); WHITE BLOOD COUNT 7.2 10^3/uL (4.3-11.0)
--- NOTE | 2016-07-18 20:45 | Diagnostic Imaging Report ---
INDICATION: Possible pneumonia. COMPARISON: 07/14/2016. EXAMINATION: Upright portable view of the chest was obtained. FINDINGS: Heart size is upper limits of normal but unchanged. There is no pulmonary vascular congestion. There is no pneumothorax or pleural fluid suspected. The lungs are clear. IMPRESSION: No radiographic evidence of an acute cardiopulmonary abnormality. No significant interval change from the prior study. Dictated by: Dictated on workstation # [id number]
[2016-07-18] MEDS ORDERED: fentaNYL INJECTION 100 MCG/2 ML AMP ONE (22:04)
[2016-07-18] MEDS: fentaNYL INJECTION 100 MCG/2 ML AMP IVP PRN (22:10)
[2016-07-18] MEDS ORDERED: RT-ALBUTEROL SULF 2.5 MG/3 ML PRE-MIX VIAL INH PRN (22:30)
[2016-07-18] MEDS ORDERED: SODIUM CHLORIDE (ADD-VANTAGE) 250 ML ONE (22:44)
[2016-07-18] MEDS ORDERED: AZITHROMYCIN IV ADD-VANTAGE 500 MG IV ONE (22:44)
[2016-07-18] MEDS: NITROFURANTOIN 100 MG (MACROBID) CAPSULE PO SCH (22:48)
[2016-07-18] MEDS: traZODone 50 MG (DESYREL) TAB PO SCH (22:48)
[2016-07-18] MEDS: TEMOZOLOMIDE PO SCH (22:48)
[2016-07-18] MEDS ORDERED: DEXAMETHASONE 4 MG/ML SDV (DECADRON) ONE (22:51)
[2016-07-18] MEDS: AZITHROMYCIN IV ADD-VANTAGE 500 MG in SODIUM CHLORIDE (ADD-VANTAGE) 250 ML IV SCH (23:03)
[2016-07-18] MEDS: SCOPOLAMINE 1.5 MG (TRANSDERM-SCOP) PATCH TOP SCH (23:04)
[2016-07-18] MEDS: DEXAMETHASONE 4 MG/ML SDV (DECADRON) IV SCH (23:05)
[2016-07-19] VITALS: BP 157/92
[2016-07-19] MEDS: fentaNYL INJECTION 100 MCG/2 ML AMP IVP PRN ×4 (00:03→17:27)
[2016-07-19] MEDS: ONDANSETRON 4 MG/2 ML (SDV) Z0FRAN IV PRN ×2 (03:43→21:10)
[2016-07-19] MEDS: BETHANECHOL 25 MG (URECHOLINE) TAB PO SCH ×4 (05:18→21:18)
[2016-07-19] MEDS: LEVOTHYROXINE 150 MCG (LEVOTHROID) TAB PO SCH (05:18)
[2016-07-19] MEDS: METOCLOPRAMIDE INJ 10 MG/2 ML (REGLAN) IVP SCH ×3 (05:21→16:34)
[2016-07-19] MEDS: CATHETER FLUSH 10 ML SYR IV SCH ×3 (05:21→21:25)
[2016-07-19] MEDS: RT-ALBUTEROL SULF 2.5 MG/3 ML PRE-MIX VIAL INH SCH ×4 (07:35→19:45)
[2016-07-19 08:00] VITALS: BP 162/93
--- NOTE | 2016-07-19 08:27 | Physical Therapy Daily Note ---
PT Daily Note-Current Subjective Pt supine in bed upon arrival. Pt is laying crossways in bed. Pt is very disoriented. Pt does agree to PT. Pain Numeric Pain Scale: 0-No Pain Location: No Pain Reported Mental Status Patient Orientation: Person, Unable to Assess Attachments: Alvarado Catheter Transfers Functional [place] Measure 0=Not Assessed/NA 4=Minimal Assistance 1=Total Assistance 5=Supervision or Setup 2=Maximal Assistance 6=Modified [place] 3=Moderate Assistance 7=Complete IndependenceIRFPAI Quality Coding Scale 6 Independent with activity with or without an assistive device 5 Patient requires set up or clean up by helper. Patient completes activity by themselves 4 Supervision or touching assist (CGA). [place] provide cues , steadying assist 3 The helper provides less than half the effort to complete the activity 2 The helper provides more than half the effort to complete the activity 1 Dependent. The helper does all the effort to complete an activity 7 Patient refused to complete or attempt activity 9 The patient did not perform the activity before the current illness or injury 88 Not attempted due to Medical conditions or safety concerns Rollin Exercises Supine Ex: Ankle pumps, Quad Set, Heel Slides, Straight leg raise, Hip abd/add Supine Reps: 15 Treatments Pt's positioning in bed is adjusted by both PT and nursing. Pt completes supine EX in bed. Pt is AROM on RLE and AAROM on LLE. Pt is left with all needs met at end of tx. Assessment Current Status: Fair Progress Pt has difficulty moving LLE but was able to move RLE pretty easily. Pt was very confused during tx. PT Short Term Goals Short Term Goals Time Frame: Jul 23, 2016 Transfers (B,C,W/C) (FIM): 2 PT Stock Replenisher Goals Half-Way Goals PT Half-Way Goals Time Frame: Jul 30, 2016 Transfers (B,C,W/C) (FIM): 3 PT Plan Problem List Problem List: Activity Tolerance, Functional Strength, Safety, Balance, Gait, Transfer, Bed Mobility, ROM Treatment/Plan Treatment Plan: Continue Plan of Care Treatment Plan: Bed Mobility, Education, Functional Strength, Safety, Therapeutic Exercise, Transfers Visits Per Week: 10 Minutes/Day (M-F): 15-30 Minutes/Day (Sat/Stevenson): 15 Safety Risks/Education Patient Education: Correct Positioning, Safety Issues Teaching Recipient: Patient Teaching Methods: Discussion Response to Teaching: Verbalize Understanding Time/GCodes Time In: 740 Time Out: 805 Total Billed Treatment Time: 25 Total Billed Treatment visit, EX (15m) & FA (10m) LIZZY ODELL SENIOR TELECOMMUNICATIONS ENGINEER Jul 19, 2016 08:27
[2016-07-19] MEDS ORDERED: NORMAL SALINE (BAXTER MINI) 50 ML IV ONE (08:42)
[2016-07-19] MEDS: cefTRIAXone INJECTION 1,000 MG in NORMAL SALINE (BAXTER MINI) 50 ML IV SCH (08:51)
[2016-07-19] MEDS: NS IV 1000 ML 1,000 ML IV SCH (08:51)
[2016-07-19] MEDS: DEXAMETHASONE 4 MG/ML SDV (DECADRON) IV SCH ×2 (08:51→21:26)
[2016-07-19] MEDS: FLUDROCORTISONE 0.1 MG (FLORINEF) TAB PO SCH (09:00)
[2016-07-19] MEDS: BACLOFEN 10 MG (LIORESAL) TAB PO SCH ×2 (10:25→21:14)
[2016-07-19] MEDS: BENAZEPRIL 20 MG (LOTENSIN) TAB PO SCH (10:25)
[2016-07-19] MEDS: LORATADINE (CLARITIN) 10 MG TAB PO SCH (10:25)
[2016-07-19] MEDS: LEVETIRACETAM 500 MG (KEPPRA) TAB PO SCH ×2 (10:25→21:10)
[2016-07-19] MEDS: APIXABAN 5 MG (ELIQUIS) TABLET PO SCH ×2 (10:25→21:14)
[2016-07-19] MEDS: FAMOTIDINE 20 MG (PEPCID) TABLET PO SCH ×2 (10:26→21:18)
--- NOTE | 2016-07-19 10:50 | Progress Note (SOAP) ---
Subjective Subjective/Events-last exam patient had a difficult night last night Patient is morning is awake. We'll try to give patient his medicines. Objective Exam Vital Signs Date Time Temp Pulse Resp B/P Pulse Ox O2 Delivery O2 Flow Rate FiO2 07/19/16 08:00 98.9 75 22 162/93 95 Room Air 07/19/16 07:35 96 Room Air 07/19/16 00:00 97.0 81 20 157/92 94 Room Air 07/18/16 22:24 93 Room Air 07/18/16 20:30 Room Air 07/18/16 20:00 96 Room Air 07/18/16 16:29 95 07/18/16 16:00 96.9 77 20 157/97 93 Room Air I & O 07/19/16 07:00 Intake Total 250 ml Output Total 1600 ml Balance -1350 ml Capillary Refill : Less Than 3 Seconds General Appearance: No Apparent Distress WD/WN Neck: Normal Inspection Respiratory: Chest Non Tender No Accessory Muscle Use No Respiratory Distress Cardiovascular: Regular Rate, Rhythm No Murmur Gastrointestinal: soft Results Lab Laboratory Tests 07/18/16 20:10 Laboratory Tests 07/18/16 20:10: Hematocrit 36L, Hemoglobin 12.4L, Mean Corpuscular Hemoglobin 31, Mean Corpuscular Hemoglobin Concent 35, Mean Corpuscular Volume 89, Mean Platelet Volume 10.3, Platelet Count 213, Red Blood Count 4.02L, Red Cell Distribution Width 13.5, White Blood Count 7.2 Microbiology 07/14/16 Blood Culture - Preliminary, Resulted No growth 07/14/16 Urine Culture - Final, Complete Lactobacillus Species Assessment/Plan Assessment/Plan Assess & Plan/Chief Complaint brain tumor. Hypokalemia. Patient not improving. Patient to take chemotherapy pill today. 07/18. Brain tumor. Glioblastoma. Family waiting for rehabilitation. [facility] not a candidate spoke to them yesterday.. . 07/19.. . Brain tumor. Glioblastoma. Patient did talk this morning and did wake up. Patient not having any hiccups which he had for the last 48 hours. We'll try to give patient's his medicine this morning Diagnosis/Problems: Clinical Quality Measures DVT/VTE Risk/Contraindication: Risk Factor Score Per Nursin RFS Level Per Nursing on Admit: 4+=Very High Contraindications-Pharm: Other *list below* ADDISON ZULETA DO Jul 19, 2016 10:23
[2016-07-19] MEDS: MULTIVIT W/MINERALS TAB (THERAGRAN M) PO SCH (12:45)
[2016-07-19 15:35] VITALS: BP 153/89
[2016-07-19] MEDS: ALFUZOSIN HCL 10 MG TAB (UROXATRAL) PO SCH (18:00)
[2016-07-19] MEDS ORDERED: AZITHROMYCIN IV ADD-VANTAGE 500 MG IV ONE (20:44)
[2016-07-19] MEDS ORDERED: SODIUM CHLORIDE (ADD-VANTAGE) 250 ML ONE (20:44)
[2016-07-19] MEDS: TEMOZOLOMIDE PO SCH (21:01)
[2016-07-19] MEDS: ALPRAZolam 0.5 MG (XANAX) TAB PO PRN (21:10)
[2016-07-19] MEDS: diphenhydrAMINE 25 MG TAB (BENADRYL) PO PRN (21:13)
[2016-07-19] MEDS: NITROFURANTOIN 100 MG (MACROBID) CAPSULE PO SCH (21:17)
[2016-07-19] MEDS: traZODone 50 MG (DESYREL) TAB PO SCH (21:18)
[2016-07-19] MEDS: AZITHROMYCIN IV ADD-VANTAGE 500 MG in SODIUM CHLORIDE (ADD-VANTAGE) 250 ML IV SCH (21:22)
[2016-07-19 23:29] VITALS: BP 168/79
[2016-07-20] MEDS: NS IV 1000 ML 1,000 ML IV SCH ×2 (01:00→16:29)
[2016-07-20] MEDS: BETHANECHOL 25 MG (URECHOLINE) TAB PO SCH ×4 (06:00→22:04)
[2016-07-20 06:19] LABS: BASOPHILS % (AUTO) 0 % (0-10); EOSINOPHILS % (AUTO) 0 % (0-10); LYMPHOCYTES # (AUTO) 1.2 X 10^3 (1.0-4.0); LYMPHOCYTES % (AUTO) 13 % (12-44); MEAN CORPUSCULAR HEMOGLOBIN 31 PG (25-34); MEAN CORPUSCULAR HGB CONC 35 G/DL (32-36); MEAN CORPUSCULAR VOLUME 88 FL (80-99); MEAN PLATELET VOLUME 10.9 FL (7.4-10.4); MONOCYTES # (AUTO) 0.7 X 10^3 (0.0-1.0); MONOCYTES % (AUTO) 7 % (0-12); NEUTROPHILS # (AUTO) 7.3 X 10^3 (1.8-7.8); NEUTROPHILS % (AUTO) 80 % (42-75); PLATELET COUNT 248 10^3/uL (130-400); RED CELL DISTRIBUTION WIDTH 13.6 % (10.0-14.5); WHITE BLOOD COUNT 9.1 10^3/uL (4.3-11.0)
[2016-07-20] MEDS: LEVOTHYROXINE 150 MCG (LEVOTHROID) TAB PO SCH (06:30)
[2016-07-20 06:45] LABS: ALANINE AMINOTRANSFERASE 50 U/L (0-55); ALBUMIN 3.9 G/DL (3.2-4.5); ANION GAP 13 MMOL/L (5-14); ASPARTATE AMINO TRANSFERASE 27 U/L (5-34); BILIRUBIN,TOTAL 0.5 MG/DL (0.1-1.0); BLOOD UREA NITROGEN 10 MG/DL (7-18); BUN/CREATININE RATIO 11; CALCIUM 8.8 MG/DL (8.5-10.1); CARBON DIOXIDE 25 MMOL/L (21-32); CHLORIDE 107 MMOL/L (98-107); CREATININE SERUM 0.93 MG/DL (0.60-1.30); GFR ESTIMATED > 60; GLUCOSE 97 MG/DL (70-105); POTASSIUM 3.3 MMOL/L (3.6-5.0); SODIUM 145 MMOL/L (135-145); TOTAL PROTEIN 6.2 G/DL (6.4-8.2)
[2016-07-20] MEDS: METOCLOPRAMIDE INJ 10 MG/2 ML (REGLAN) IVP SCH ×3 (07:00→16:25)
[2016-07-20] MEDS: CATHETER FLUSH 10 ML SYR IV SCH ×3 (07:01→22:00)
[2016-07-20] MEDS: RT-ALBUTEROL SULF 2.5 MG/3 ML PRE-MIX VIAL INH SCH ×4 (07:59→19:53)
[2016-07-20] MEDS ORDERED: cefTRIAXone 1 GM (ROCEPHIN) VIAL ONE (08:35)
[2016-07-20] MEDS ORDERED: NORMAL SALINE (BAXTER MINI) 50 ML IV ONE (08:36)
[2016-07-20] MEDS: DEXAMETHASONE 4 MG/ML SDV (DECADRON) IV SCH ×2 (08:46→22:13)
[2016-07-20] MEDS: cefTRIAXone INJECTION 1,000 MG in NORMAL SALINE (BAXTER MINI) 50 ML IV SCH (08:46)
[2016-07-20 08:51] VITALS: BP 185/76
[2016-07-20] MEDS: LEVETIRACETAM 500 MG (KEPPRA) TAB PO SCH ×2 (09:00→21:45)
[2016-07-20] MEDS: BENAZEPRIL 20 MG (LOTENSIN) TAB PO SCH (09:00)
[2016-07-20] MEDS: BACLOFEN 10 MG (LIORESAL) TAB PO SCH ×2 (09:00→21:53)
[2016-07-20] MEDS: APIXABAN 5 MG (ELIQUIS) TABLET PO SCH ×2 (09:00→21:53)
[2016-07-20] MEDS: FAMOTIDINE 20 MG (PEPCID) TABLET PO SCH ×2 (09:00→22:04)
[2016-07-20] MEDS: LORATADINE (CLARITIN) 10 MG TAB PO SCH (09:00)
[2016-07-20] MEDS: FLUDROCORTISONE 0.1 MG (FLORINEF) TAB PO SCH (09:00)
[2016-07-20] MEDS ORDERED: ENALAPRILAT 2.5 MG/2 ML (VASOTEC) VIAL IV NR (09:15)
--- NOTE | 2016-07-20 09:18 | Progress Note (SOAP) ---
Subjective Subjective/Events-last exam patient just sleeping this morning. Patient not arousable. Patient has high blood pressure. Patient unable to take his medicines. To give IV KCl and enalapril. Patient continues to decline Objective Exam Vital Signs Date Time Temp Pulse Resp B/P Pulse Ox O2 Delivery O2 Flow Rate FiO2 07/20/16 08:51 96.8 70 22 185/76 94 Room Air 07/20/16 07:20 94 Room Air 07/19/16 23:29 100.0 88 20 168/79 93 Room Air 07/19/16 20:00 96 Room Air 07/19/16 19:45 92 Room Air 07/19/16 15:35 98.1 71 22 153/89 93 Room Air 07/19/16 15:33 93 Room Air 07/19/16 10:54 94 Room Air I & O 07/20/16 07:00 Intake Total 2105 ml Output Total 4450 ml Balance -2345 ml Capillary Refill : Less Than 3 Seconds General Appearance: No Apparent Distress WD/WN Results Lab Laboratory Tests 07/20/16 05:40 Laboratory Tests 07/20/16 05:40: Alanine Aminotransferase (ALT/SGPT) 50, Albumin 3.9, Alkaline Phosphatase 56, Anion Gap 13, Aspartate Amino Transf (AST/SGOT) 27, BUN/Creatinine Ratio 11, Basophils # (Auto) 0.0, Basophils (%) (Auto) 0, Blood Urea Nitrogen 10, Calcium Level 8.8, Carbon Dioxide Level 25, Chloride Level 107, Creatinine 0.93, Eosinophils # (Auto) 0.0, Eosinophils (%) (Auto) 0, Estimat Glomerular Filtration Rate > 60, Glucose Level 97, Hematocrit 41, Hemoglobin 14.1, Lymphocytes # (Auto) 1.2, Lymphocytes (%) (Auto) 13, Mean Corpuscular Hemoglobin 31, Mean Corpuscular Hemoglobin Concent 35, Mean Corpuscular Volume 88, Mean Platelet Volume 10.9H, Monocytes # (Auto) 0.7, Monocytes (%) (Auto) 7, Neutrophils # (Auto) 7.3, Neutrophils (%) (Auto) 80H, Platelet Count 248, Potassium Level 3.3L, Red Blood Count 4.60, Red Cell Distribution Width 13.6, Sodium Level 145, Total Bilirubin 0.5, Total Protein 6.2L, White Blood Count 9.1 Microbiology 07/14/16 Blood Culture - Preliminary, Resulted No growth 07/14/16 Urine Culture - Final, Complete Lactobacillus Species Assessment/Plan Assessment/Plan Assess & Plan/Chief Complaint brain tumor. Hypokalemia. Patient not improving. Patient to take chemotherapy pill today. 07/18. Brain tumor. Glioblastoma. Family waiting for rehabilitation. [facility] not a candidate spoke to them yesterday.. . 07/19.. . Brain tumor. Glioblastoma. Patient did talk this morning and did wake up. Patient not having any hiccups which he had for the last 48 hours. We'll try to give patient's his medicine this morning. . 07/20/16. Brain tumor. Glioblastoma. Hypokalemia. Hypertension. Patient nonresponsive this morning. Patient not taking fluids or eating or taking his medicine this morning area Patient continues to decline Diagnosis/Problems: Clinical Quality Measures DVT/VTE Risk/Contraindication: Risk Factor Score Per Nursin RFS Level Per Nursing on Admit: 4+=Very High Contraindications-Pharm: Other *list below* ADDISON ZULETA DO Jul 20, 2016 09:18
[2016-07-20] MEDS ORDERED: ENALAPRILAT 2.5 MG/2 ML (VASOTEC) VIAL IV PRN (09:45)
[2016-07-20] MEDS: POTASSIUM CL 10MEQ/50ML IVPB 50 ML IV SCH ×2 (09:56→11:22)
[2016-07-20] MEDS: MULTIVIT W/MINERALS TAB (THERAGRAN M) PO SCH (12:00)
[2016-07-20 16:00] VITALS: BP 162/91
[2016-07-20] MEDS: ALFUZOSIN HCL 10 MG TAB (UROXATRAL) PO SCH (18:00)
[2016-07-20] MEDS: traZODone 50 MG (DESYREL) TAB PO SCH (21:00)
[2016-07-20] MEDS: ONDANSETRON 4 MG/2 ML (SDV) Z0FRAN IV PRN (21:41)
[2016-07-20] MEDS: AZITHROMYCIN IV ADD-VANTAGE 500 MG in SODIUM CHLORIDE (ADD-VANTAGE) 250 ML IV SCH (21:44)
[2016-07-20] MEDS: ALPRAZolam 0.5 MG (XANAX) TAB PO PRN (21:45)
[2016-07-20] MEDS: diphenhydrAMINE 25 MG TAB (BENADRYL) PO PRN (21:53)
[2016-07-20] MEDS: NITROFURANTOIN 100 MG (MACROBID) CAPSULE PO SCH (22:03)
[2016-07-20] MEDS: TEMOZOLOMIDE PO SCH (22:04)
[2016-07-21] VITALS: BP 131/85
[2016-07-21] MEDS: BETHANECHOL 25 MG (URECHOLINE) TAB PO SCH (06:00)
[2016-07-21] MEDS: LEVOTHYROXINE 150 MCG (LEVOTHROID) TAB PO SCH (06:30)
[2016-07-21] MEDS: CATHETER FLUSH 10 ML SYR IV SCH ×3 (06:31→22:00)
[2016-07-21] MEDS: METOCLOPRAMIDE INJ 10 MG/2 ML (REGLAN) IVP SCH ×3 (06:31→16:24)
[2016-07-21] MEDS: RT-ALBUTEROL SULF 2.5 MG/3 ML PRE-MIX VIAL INH SCH (07:06)
[2016-07-21 08:00] VITALS: BP 179/89
[2016-07-21] MEDS: APIXABAN 5 MG (ELIQUIS) TABLET PO SCH (08:03)
[2016-07-21] MEDS: NS IV 1000 ML 1,000 ML IV SCH (08:03)
[2016-07-21] MEDS: FLUDROCORTISONE 0.1 MG (FLORINEF) TAB PO SCH (08:03)
[2016-07-21] MEDS: LORATADINE (CLARITIN) 10 MG TAB PO SCH (08:03)
[2016-07-21] MEDS: BACLOFEN 10 MG (LIORESAL) TAB PO SCH (08:04)
[2016-07-21] MEDS: LEVETIRACETAM 500 MG (KEPPRA) TAB PO SCH (08:04)
[2016-07-21] MEDS: FAMOTIDINE 20 MG (PEPCID) TABLET PO SCH (08:04)
[2016-07-21] MEDS: BENAZEPRIL 20 MG (LOTENSIN) TAB PO SCH (08:04)
[2016-07-21] MEDS ORDERED: NORMAL SALINE (BAXTER MINI) 50 ML IV ONE (09:25)
[2016-07-21] MEDS ORDERED: cefTRIAXone 1 GM (ROCEPHIN) VIAL ONE (09:25)
[2016-07-21] MEDS: cefTRIAXone INJECTION 1,000 MG in NORMAL SALINE (BAXTER MINI) 50 ML IV SCH (09:36)
[2016-07-21] MEDS: DEXAMETHASONE 4 MG/ML SDV (DECADRON) IV SCH ×2 (09:36→22:00)
--- NOTE | 2016-07-21 10:19 | Progress Note (SOAP) ---
Subjective Subjective/Events-last exam PT IS A 61 Y/O MALE WHO HAS HISTORY OF A GLIOBLASTOMA. HE HAS RECEIVED TREATMENT AT [facility] FROM DR. NUNN - NEUROSURGEON, AND DR. YASIR BURROUGHS - NEURO-ONCOLOGIST. THE PATIENT PRESENTED WITH FEVER, SYMPTOMS OF INFECTION. HIS INITIALLY REQUESTED EVAL FOR TRANSFER TO FOR HIS NEUROLOGY TEAM TO EVALUATE HIM. DR. ZULETA TALKED TO THE TRANSFER TEAM AND THEY FELT THAT THERE WAS NOT A HIGHER LEVEL OF CARE THAT WAS ABLE TO BE RENDERED THAT WOULD RESULT IN ANY DIFFERENT OUTCOME THAN THE ONE THAT WAS MOST LIKELY FOR THIS PATIENT. TODAY MY CONVERSATION WITH HIS RESULTED IN HER DECISION FOR COMFORT CARE. SHE REPORTS THAT ON THURSDAY HE TOLD HER THAT HE WAS DYING AND IT WAS OKAY TO LET HIM GO. Review of Systems Neurological: : Confusion PT UNABLE TO PARTICIPATE IN ROS Objective Exam Vital Signs Date Time Temp Pulse Resp B/P Pulse Ox O2 Delivery O2 Flow Rate FiO2 07/21/16 08:00 96 Room Air 07/21/16 08:00 97.3 92 16 179/89 92 Room Air 07/21/16 07:06 93 Room Air 07/21/16 00:00 97.3 71 22 131/85 96 Room Air 07/20/16 20:00 96 Room Air 07/20/16 19:54 96 Room Air 07/20/16 16:00 97.7 72 20 162/91 91 Room Air 07/20/16 15:38 95 Room Air 07/20/16 10:47 95 Room Air I & O 07/21/16 07:00 Intake Total 110 ml Output Total 1800 ml Balance -1690 ml Capillary Refill : Less Than 3 Seconds General Appearance: Mild Distress (ABNORMAL MOVEMENTS, WRITHING IN BED) Respiratory: Chest Non Tender Decreased Breath Sounds Cardiovascular: Tachycardia Gastrointestinal: soft Neurologic/Psychiatric: Disoriented x3 Skin: Warm/Dry Results Lab Microbiology 07/14/16 Blood Culture - Final, Complete No growth 07/14/16 Urine Culture - Final, Complete Lactobacillus Species Assessment/Plan Assessment/Plan Assess & Plan/Chief Complaint GLIOBLASTOMA CONFUSION WEAKNESS DISCUSSED CASE WITH IS , SHE IS DESIROUS OF COMFORT CARE FOR HER . I HAVE INITIATED COMFORT CARE PROTOCOL. DEPENDING ON HOW THE PATIENT IS PROGRESSING WE WILL CONSIDER COMFORT CARE WITH HOSPICE IN THE HOSPITAL. MEDICATIONS STOPPED FOR TREATMENT OF INFECTION, FLUIDS, ETC, AND COMFORT CARE PROTOCOL INITIATED. Diagnosis/Problems: Clinical Quality Measures DVT/VTE Risk/Contraindication: Risk Factor Score Per Nursin RFS Level Per Nursing on Admit: 4+=Very High Contraindications-Pharm: Other *list below* HERNANDEZ LAIRD MD Jul 21, 2016 10:19
[2016-07-21] MEDS ORDERED: PROMETHAZINE INJ 25 MG/ML (PHENERGAN) AMP IVP PRN (10:45)
[2016-07-21] MEDS ORDERED: BISACODYL 10 MG SUPP (DULCOLAX) PR PRN (10:45)
[2016-07-21] MEDS ORDERED: diphenhydrAMINE 50 MG/ML INJ (BENADRYL) IVP ONE (10:45)
[2016-07-21] MEDS ORDERED: SALIVA STIMULANT MOUTH SPRAY (BIOTENE) 1.5 OZ MM PRN (10:45)
[2016-07-21] MEDS ORDERED: diphenhydrAMINE 50 MG/ML INJ (BENADRYL) IVP PRN (10:45)
[2016-07-21] MEDS ORDERED: ARTIFICAL TEARS 0.4 ML UNIT DOSE (REFRESH PLUS) OU PRN (10:45)
[2016-07-21] MEDS ORDERED: GLYCOPYRROLATE 0.2 MG/ML (ROBINUL) 2 ML VIAL IV PRN (10:45)
[2016-07-21] MEDS ORDERED: ACETAMINOPHEN 650 MG SUPP (TYLENOL) PR PRN (10:45)
--- NOTE | 2016-07-21 11:21 | Physical Therapy Progress Note ---
Therapy Progress Note DC to comfort care per Dr. Barger. NGUYỄN LEES PT Jul 21, 2016 11:21
--- NOTE | 2016-07-21 12:35 | Occ Therapy Progress Note ---
Therapy Progress Note DC OT due to patient on Comfort Care. SHAYAN TELLEZ OT Jul 21, 2016 12:35
[2016-07-21] MEDS: SCOPOLAMINE 1.5 MG (TRANSDERM-SCOP) PATCH TOP SCH (22:01)
[2016-07-22] MEDS: METOCLOPRAMIDE INJ 10 MG/2 ML (REGLAN) IVP SCH (06:00)
[2016-07-22] MEDS: CATHETER FLUSH 10 ML SYR IV SCH ×3 (06:10→21:50)
--- NOTE | 2016-07-22 07:54 | Progress Note (SOAP) ---
Subjective Subjective/Events-last exam PT'S STATES THAT HE HAD A ROUGH NIGHT - HAD A COUGHING FIT THEN HAD A LARGE AMOUNT OF MUCUS COUGHED UP AND THEN HAD IMPROVED BREATHING PATTERN. HIS STATES THAT SHE IS SCARED TO LOOSE HIM BUT FEELS THAT HE IS PHYSICALLY READY TO PASS AWAY. Review of Systems PT UNABLE TO PARTICIPATE IN ROS Objective Exam Vital Signs Date Time Temp Pulse Resp B/P Pulse Ox O2 Delivery O2 Flow Rate FiO2 07/21/16 22:16 94 Room Air 07/21/16 20:40 96 Room Air 07/21/16 08:00 96 Room Air 07/21/16 08:00 97.3 92 16 179/89 92 Room Air I & O 07/22/16 07:00 Intake Total 50 ml Output Total 1650 ml Balance -1600 ml Capillary Refill : Less Than 3 Seconds General Appearance: Thin Other (FRAIL) Respiratory: Chest Non Tender Decreased Breath Sounds Cardiovascular: Tachycardia Gastrointestinal: normal bowel sounds soft Neurologic/Psychiatric: Disoriented x3 Results Lab Microbiology 07/14/16 Blood Culture - Final, Complete No growth 07/14/16 Urine Culture - Final, Complete Lactobacillus Species Assessment/Plan Assessment/Plan Assess & Plan/Chief Complaint GLIOBLASTOMA CONFUSION WEAKNESS DISCUSSED CASE WITH IS , SHE IS DESIROUS OF COMFORT CARE FOR HER . I HAVE INITIATED COMFORT CARE PROTOCOL. DEPENDING ON HOW THE PATIENT IS PROGRESSING WE WILL CONSIDER COMFORT CARE WITH HOSPICE IN THE HOSPITAL. MEDICATIONS STOPPED FOR TREATMENT OF INFECTION, FLUIDS, ETC, AND COMFORT CARE PROTOCOL INITIATED. PT'S IS NOT WANTING TO USE MORPHINE AT THIS TIME UNLESS ABSOLUTELY NECESSARY SHE WAS WORRIED ABOUT A FEVER, THEREFORE TORADOL HAS BEEN INITIATED IV - SHE DID NOT WANT TO HAVE HIM GET A SUPPOSITORY IF POSSIBLE TO AVOID. Diagnosis/Problems: Clinical Quality Measures DVT/VTE Risk/Contraindication: Risk Factor Score Per Nursin RFS Level Per Nursing on Admit: 4+=Very High Contraindications-Pharm: Other *list below* HERNANDEZ LAIRD MD Jul 22, 2016 07:54
[2016-07-22] MEDS ORDERED: KETOROLAC 30 MG/ML VIAL IVP NR (09:00)
[2016-07-22] MEDS: KETOROLAC 15 MG/ML VIAL IVP SCH ×3 (13:36→23:38)
[2016-07-22 20:30] VITALS: BP 171/90
[2016-07-23] MEDS: KETOROLAC 15 MG/ML VIAL IVP SCH ×3 (05:33→17:49)
[2016-07-23] MEDS: CATHETER FLUSH 10 ML SYR IV SCH ×3 (05:33→21:54)
[2016-07-23] MEDS: morphine INJ 4 MG/ML 1 ML (VIAL/SYRINGE) IV PRN ×4 (09:41→23:16)
--- NOTE | 2016-07-23 11:12 | Progress Note (SOAP) ---
Subjective Subjective/Events-last exam PT NOT RESPONSIVE VERBALLY TO THIS PROVIDER. PER THE STAFF THE PATIENT'S SPOUSE HAS NOT BEEN WANTING TO HAVE HIM GET MORPHINE. DISCUSSION WITH HIS TODAY - SHE STATES THAT SHE HAS BEEN WORRIED ABOUT HIM GETTING MORPHINE BECAUSE SHE DOES NOT WANT TO HAVE THE MORPHINE MAKE HIM PASS AWAY, BUT SHE WANTS HIM TO HAVE COMFORT. SHE REPORTS THAT SHE IS CONFLICTED ABOUT THE MEDICATION'S ROLE IN HIS DYING PROCESS SHE DOES NOT WANT TO BE REQUESTING MEDICATION THAT CAUSES HIM TO . Review of Systems PT UNABLE TO PARTICIPATE IN ROS Objective Exam Vital Signs Date Time Temp Pulse Resp B/P Pulse Ox O2 Delivery O2 Flow Rate FiO2 07/23/16 10:06 Room Air 07/22/16 20:45 96 Room Air 07/22/16 20:30 97.3 95 16 171/90 85 Room Air I & O 07/23/16 07:00 Intake Total 0 ml Output Total 800 ml Balance -800 ml Capillary Refill : Less Than 3 Seconds General Appearance: Moderate Distress Thin Respiratory: Decreased Breath Sounds Other (WORSENING WORK OF BREATHING) Cardiovascular: Tachycardia Neurologic/Psychiatric: Disoriented x3 Results Lab Microbiology 07/14/16 Blood Culture - Final, Complete No growth 07/14/16 Urine Culture - Final, Complete Lactobacillus Species Assessment/Plan Assessment/Plan Assess & Plan/Chief Complaint GLIOBLASTOMA CONFUSION WEAKNESS DISCUSSED CASE WITH IS , SHE IS DESIROUS OF COMFORT CARE FOR HER . I HAVE INITIATED COMFORT CARE PROTOCOL. DEPENDING ON HOW THE PATIENT IS PROGRESSING WE WILL CONSIDER COMFORT CARE WITH HOSPICE IN THE HOSPITAL. MEDICATIONS STOPPED FOR TREATMENT OF INFECTION, FLUIDS, ETC, AND COMFORT CARE PROTOCOL INITIATED. SHE WAS WORRIED ABOUT A FEVER, THEREFORE TORADOL HAS BEEN INITIATED IV - SHE DID NOT WANT TO HAVE HIM GET A SUPPOSITORY IF POSSIBLE TO AVOID. AFTER DISCUSSION TODAY - AND HIS INCREASED WORK OF BREATHING - HIS IS OKAY WITH THE USE OF MORPHINE FOR COMFORT AND TO DECREASE HIS WORK OF BREATHING AND ALLOW FOR BETTER CONTROL OF SYMPTOMS OF AIR HUNGER AND PAIN. Diagnosis/Problems: Clinical Quality Measures DVT/VTE Risk/Contraindication: Risk Factor Score Per Nursin RFS Level Per Nursing on Admit: 4+=Very High Contraindications-Pharm: Other *list below* HERNANDEZ LAIRD MD Jul 23, 2016 11:12
[2016-07-24] MEDS: KETOROLAC 15 MG/ML VIAL IVP SCH ×5 (00:55→23:46)
[2016-07-24] MEDS: CATHETER FLUSH 10 ML SYR IV SCH ×3 (06:22→22:27)
[2016-07-24] MEDS: morphine INJ 4 MG/ML 1 ML (VIAL/SYRINGE) IV PRN ×2 (09:13→14:24)
--- NOTE | 2016-07-24 09:25 | Progress Note (SOAP) ---
Subjective Subjective/Events-last exam PT UNRESPONSIVE - STATES THAT HE HAS HAD MORE DIFFICULTY WITH BREATHING, HIS PATTERN HAS WORSENED FROM A BREATHING STANDPOINT. Review of Systems PT UNABLE TO PARTICIPATE IN ROS Objective Exam Vital Signs Date Time Temp Pulse Resp B/P Pulse Ox O2 Delivery O2 Flow Rate FiO2 07/23/16 20:00 Room Air 07/23/16 19:32 94 Room Air 07/23/16 10:06 Room Air I & O 07/24/16 07:00 Intake Total 0 ml Output Total 320 ml Balance -320 ml Capillary Refill : Less Than 3 Seconds General Appearance: Moderate Distress Thin Respiratory: Decreased Breath Sounds Rhonci Cardiovascular: Tachycardia Gastrointestinal: other (DECREASED BOWEL SOUNDS) Neurologic/Psychiatric: Depressed Affect Skin: Mottled Results Lab Microbiology 07/14/16 Blood Culture - Final, Complete No growth 07/14/16 Urine Culture - Final, Complete Lactobacillus Species Assessment/Plan Assessment/Plan Assess & Plan/Chief Complaint GLIOBLASTOMA CONFUSION WEAKNESS DISCUSSED CASE WITH IS , SHE IS DESIROUS OF COMFORT CARE FOR HER . MEDICATIONS STOPPED FOR TREATMENT OF INFECTION, FLUIDS, ETC, AND COMFORT CARE PROTOCOL INITIATED. ANTICIPATE DEMISE IN THE NEXT 24 - 48 HOURS DUE TO SIGNIFICANT DECLINE Diagnosis/Problems: Clinical Quality Measures DVT/VTE Risk/Contraindication: Risk Factor Score Per Nursin RFS Level Per Nursing on Admit: 4+=Very High Contraindications-Pharm: Other *list below* HERNANDEZ LAIRD MD Jul 24, 2016 09:25
[2016-07-24] MEDS: morphine INJ 4 MG/ML 1 ML (VIAL/SYRINGE) IVP SCH ×3 (11:16→23:46)
[2016-07-24] MEDS: LORazepam INJ 2 MG/ML (ATIVAN) VIAL IVP PRN ×2 (14:24→22:27)
[2016-07-24] MEDS: SCOPOLAMINE 1.5 MG (TRANSDERM-SCOP) PATCH TOP SCH (22:27)
[2016-07-25] MEDS: LORazepam INJ 2 MG/ML (ATIVAN) VIAL IVP PRN ×3 (01:57→12:09)
[2016-07-25] MEDS: KETOROLAC 15 MG/ML VIAL IVP SCH ×2 (06:22→12:09)
[2016-07-25] MEDS: morphine INJ 4 MG/ML 1 ML (VIAL/SYRINGE) IVP SCH ×2 (06:22→12:09)
[2016-07-25] MEDS: CATHETER FLUSH 10 ML SYR IV SCH ×2 (06:22→12:09)
[2016-07-25] MEDS: morphine INJ 4 MG/ML 1 ML (VIAL/SYRINGE) IV PRN ×2 (09:13→10:11)
--- NOTE | 2016-08-13 12:34 | Discharge Summary ---
Diagnosis/Chief Complaint Date of Admission Jul 17, 2016 at 08:30 Date of Discharge Jul 25, 2016 at 14:44 Admission Diagnosis Admission Diagnosis GLIOBLASTOMA CONFUSION WEAKNESS NAUSEA EMESIS DEHYDRATION Discharge Diagnosis GLIOBLASTOMA CONFUSION WEAKNESS NAUSEA EMESIS DEHYDRATION Reason Hospital Visit PT PRESENTED TO THE HOSPITAL WITH WORSENING WEAKNESS, NAUSEA, EMESIS, THICK MUCOUS SECRETIONS WITH WEAK COUGH, PT HAS HISTORY OF GLIOBLASTOMA WITH PERSISTENT LESIONS. Discharge Summary Discharge Physical Examination Allergies: Coded Allergies: vancomycin (Verified Allergy, Unknown, 05/25/16) General Appearance: Other () Psych/Mental Status: Other () Hospital Course GLIOBLASTOMA CONFUSION WEAKNESS DISCUSSED CASE WITH IS , SHE IS DESIROUS OF COMFORT CARE FOR HER . MEDICATIONS STOPPED FOR TREATMENT OF INFECTION, FLUIDS, ETC, AND COMFORT CARE PROTOCOL INITIATED. PT PEACEFULLY IN THE PRESENCE OF HIS SPOUSE WITH NURSES CONFIRMING OF PATIENT. Discharge Condition at discharge Instructions to patient/family Discharge Medications Clinical Quality Measures DVT/VTE Risk/Contraindication: Risk Factor Score Per Nursin RFS Level Per Nursing on Admit: 4+=Very High Contraindications-Pharm: Other *list below* HERNANDEZ LAIRD MD Aug 13, 2016 12:34
== END 2016-07-25 14:44 | disposition expired | DRG 641 ==
LOC: EDUNIT# 22:10 → ER 22:11 → UNDOADMOB 23:55 → 4TH 23:55 → OBSVTOIN 07-17 08:30 → INTOOBSV 07-17 08:30
PROVIDERS: ADMIT Family Medicine; ATTEND Family Medicine
DX: E86.0 Dehydration (principal); R53.1 Weakness; R11.2 Nausea with vomiting, unspecified; R41.0 Disorientation, unspecified; C71.9 Malignant neoplasm of brain, unspecified; E87.6 Hypokalemia; I10 Essential (primary) hypertension; Z51.5 Encounter for palliative care; Z66 Do not resuscitate; F17.210 Nicotine dependence, cigarettes, uncomplicated; K21.9 Gastro-esophageal reflux disease without esophagitis; E03.9 Hypothyroidism, unspecified; H54.0 Blindness, both eyes
CPT/HCPCS: 36415; 71010; 80048; 80053; 81000; 83605; 85007; 85025; 85027; 86141; 87040; 87077; 87088; 94640; 94760; G0378